=== PATIENT | female | born 1980 | race Caucasian/White ===

== ENCOUNTER 2016-08-24 16:20 | Emergency (ER) | payer MEDICAID ==
--- NOTE | 2016-08-24 16:39 | ED PDOC ---
Arrival/HPI - General Historian: Other EM Caveat: Intoxicated - General Time Seen by Provider: 08/24/16 16:28 - History of Present Illness Narrative History of Present Illness (Text): 08/24/16 16:35 Patient presents with slurring of speech and alcohol on breath. Admits to drinking throughout the day. Pt denies suicidal or homicidal ideations. Denies any trauma or injury. (Feliciano Moffett) Past Medical History - Provider Review Nursing Documentation Reviewed: Yes Family/Social History - Physician Review Nursing Documentation Reviewed: Yes Family/Social History: Unknown Family HX Allergies/Home Meds Allergies/Adverse Reactions: Allergies Unobtainable Allergy (Unverified 08/24/16 16:40) Home Medications: Home Meds Medication Instructions Recorded Confirmed Unobtainable 08/24/16 08/24/16 Review of Systems - Review of Systems Systems not reviewed;Unavailable: Intoxicated Physical Exam Vital Signs Reviewed: Yes Temperature: Afebrile Blood Pressure: Normal Pulse: Regular Respiratory Rate: Normal Appearance: Positive for: Well-Appearing Pain Distress: None - Physical Exam Narrative Physical Exam (Text): Patient is in no distress, no airway compromise, breathing without difficulty, good insp/exp effort. No signs of head/torso/extremity trauma. Following commands without difficulty. Head: Present: Atraumatic, Normocephalic. No: Tenderness, Contusion, Swelling, Ecchymosis, Abrasion, Laceration Pupils: Present: PERRL Extroacular Muscles: Present: EOMI Conjunctiva: Present: Normal Mouth: Present: Moist Mucous Membranes Neck: Present: Normal Range of Motion. No: MIDLINE TENDERNESS, Paraspinal Tenderness Respiratory/Chest: Present: Clear to Auscultation, Good Air Exchange. No: Respiratory Distress, Accessory Muscle Use Cardiovascular: Present: Regular Rate and Rhythm, Normal S1, S2. No: Murmurs Abdomen: Present: Normal Bowel Sounds. No: Tenderness, Distention, Peritoneal Signs, Rebound, Guarding Back: Present: Normal Inspection. No: Midline Tenderness, Paraspinal Tenderness Upper Extremity: Present: Normal Inspection. No: Cyanosis, Edema Lower Extremity: Present: Normal Inspection. No: Edema Neurological: Present: GCS=15, CN II-XII Intact Skin: Present: Warm, Dry, Normal Color. No: Rashes Lymphatic: Present: OX3, NI, NC Psychiatric: Present: Alert. Absent: Agitated, suicidal/homicidal ideations (Feliciano Moffett) Vital Signs Temp Pulse Resp BP Pulse Ox 08/25/16 11:03 97.3 F L 77 18 126/70 99 08/25/16 09:49 80 16 120/66 98 08/25/16 07:30 76 16 169/62 H 98 08/25/16 04:26 96 H 16 110/74 100 08/24/16 18:40 100 H 16 104/59 L 100 08/24/16 16:21 98.4 F 100 H 14 129/82 95 Medical Decision Making ED Course and Treatment: 08/24/16 16:35 Impression: A 36 year old intoxicated female. No acute findings on physical examination. Differential Diagnosis include but are not limited to: alcohol abuse Plan: -- sobriety -- Reassess and disposition (Feliciano Moffett) - Lab Interpretations Lab Results: 08/24/16 19:00 08/24/16 19:00 Lab Results 08/24/16 21:05: Urine Opiates Screen Negative, Urine Methadone Screen Negative, Ur Barbiturates Screen Negative, Ur Phencyclidine Scrn Negative, Ur Amphetamines Screen Negative, U Benzodiazepines Scrn Negative, U Oth Cocaine Metabols Negative, U Cannabinoids Screen Negative 08/24/16 21:05: Urine Color Yellow, Urine Appearance Clear, Urine pH 6.0, Ur Specific [place] 1.010, Urine Protein Negative, Urine Glucose (UA) Negative, Urine Ketones Negative, Urine Blood Negative, Urine Nitrate Negative, Urine Bilirubin Negative, Urine Urobilinogen 0.2, Ur Leukocyte Esterase Negative 08/24/16 19:00: Alcohol, Quantitative 456 H* 08/24/16 19:00: Salicylates < 1 L, Acetaminophen < 10.0 L 08/24/16 19:00: Sodium 146, Potassium 4.2, Chloride 109 H, Carbon Dioxide 26, Anion Gap 15, BUN 11, Creatinine 0.9, Est GFR ( Amer) > 60, Est GFR (Non- Af Amer) > 60, Random Glucose 84, Calcium 8.3 L, Total Bilirubin 0.4, AST 41 H, ALT 34, Alkaline Phosphatase 55, Total Protein 7.3, Albumin 4.2, Globulin 3.0, Albumin/Globulin Ratio 1.4 08/24/16 19:00: WBC 5.5, RBC 3.99, Hgb 13.7, Hct 38.7, MCV 97.0, MCH 34.3, MCHC 35.4, RDW 14.1, Plt Count 205, MPV 10.3, Gran % 45.9 L, Lymph % (Auto) 48.2 H, [place] % (Auto) 4.5, Eos % (Auto) 0.9 L, Baso % (Auto) 0.5, Gran # 2.52, Lymph # 2.7, [place] # 0.3, Eos # 0.1, Baso # 0.03 ED OBSERVATION Date of observation admission: 08/24/16 Time of observation admission: 16:35 - Observation admission statement Patient is being placed in observation because:: alcohol intoxication (Feliciano Moffett) - Goals of Observation Goals of observation are:: sobriety (Feliciano Moffett) - Progress Note Progress Note: 08/24/16 23:47 Patient signed out to me by Dr. Moffett. Pending sobriety and PES evaluation ( Jono Puckett) 08/25/16 07:00 Patient signed out to me by Dr. Puckett pending PES evaluation. 08/25/16 10:42 Patient seen and evaluated by PES. Cleared for discharge. Denies suicidal ideation to me currently. She is not tremulous. She is not tachycardic or hypertensive. Patient is tolerating oral intake. She is alert and oriented. Normal speech and steady gait. Advised on the risks of alcohol abuse. (Suyapa Pollock) 08/24/16 17:23 On reevaluation, the patient is resting comfortably. 08/24/16 18:37 pt friend in the ER, states he is concerned since she expressed suicidal thoughts over the past week, asked to have her seen by PES pt pending sobriety 08/24/16 23:[address] Puckett in stable condition (Feliciano Moffett) - Scribe Statement The provider has reviewed the documentation as recorded by the Scribe - Scribe Statement Martha Agrawal Provider Scribe Attestation: All medical record entries made by the Scribe were at my direction and personally dictated by me. I have reviewed the chart and agree that the record accurately reflects my personal performance of the history, physical exam, medical decision making, and the department course for this patient. I have also personally directed, reviewed, and agree with the discharge instructions and disposition. (Feliciano Moffett) Disposition/Present on Arrival - Present on Arrival Any Indicators Present on Arrival: No - Disposition Have Diagnosis and Disposition been Completed?: Yes Disposition Time: 16:35 Patient Plan: Discharge - Disposition Diagnosis: Alcohol intoxication Disposition: HOME/ ROUTINE Condition: GOOD Discharge Instructions (ExitCare): Alcohol Intoxication (ED) Additional Instructions: For any tremors, any shaking, any fevers, any abdominal pain, any bloody urine or stool, any unsteadiness, any headaches, any persistent or worsening of any symptoms, get rechecked immediately. Risks of excessive alcohol use have been reviewed with you. DO NOT DRINK AND DRIVE. Follow-up with outpatient treatment centers as recommended. Referrals: Alcoholics Anonymous [Outside] - Follow up with primary [facility] at [facility] [Outside] - Follow up with primary Devan Gallardo MD [Primary Care Provider] - Follow up with primary
[2016-08-24 16:40] VITALS: BMI 18.6
[2016-08-24 19:19] LABS: BASO # 0.03 K/mm3 (0.0-2.0); BASO % 0.5 % (0.0-3.0); EOS # 0.1 (0.0-0.7); EOS % 0.9 % (1.5-5.0); GRAN # 2.52 (1.4-6.5); GRAN % 45.9 % (50.0-68.0); HEMOGLOBIN 13.7 gm/dL (12.0-16.0); LYMPH # 2.7 (1.2-3.4); LYMPH % 48.2 % (22.0-35.0); MEAN CORPUSCULAR HEMOGLOBIN 34.3 pg (25.0-35.0); MEAN CORPUSCULAR HGB CONC 35.4 g/dl (31.0-37.0); MEAN PLATELET VOLUME 10.3 fl (7.0-11.0); MONO # 0.3 (0.1-0.6); MONO % 4.5 % (1.0-6.0); PLATELET COUNT 205 10^3/uL (120.0-450.0); RBC 3.99 10^6/uL (3.5-6.1); RED CELL DISTRIBUTION WIDTH 14.1 % (11.5-14.5); WHITE BLOOD COUNT 5.5 10^3/ul (4.5-11.0)
[2016-08-24 19:51] LABS: ALB/GLOB RATIO 1.4 (1.1-1.8); ALBUMIN 4.2 g/dL (3.0-4.8); ALT/SGPT 34 U/L (7-56); AST/SGOT 41 U/L (15-39); BLOOD UREA NITROGEN 11 mg/dL (7-21); CALCIUM 8.3 mg/dL (8.4-10.5); GFR AFRICAN-AMERICAN > 60; GFR NON-AFRICAN AMERICAN > 60
[2016-08-24 20:03] LABS: ACETAMINOPHEN < 10.0 ug/ml (10.0-20.0); SALICYLATE < 1 mg/dL (2.0-20.0)
[2016-08-24 21:22] LABS: URINE BILIRUBIN NEGATIVE (NEGATIVE); URINE BLOOD NEGATIVE (NEGATIVE); URINE GLUCOSE (UA) NEGATIVE (NEGATIVE); URINE LEUKOCYTE ESTERASE NEGATIVE Leu/uL (NEGATIVE); URINE NITRATE NEGATIVE (NEGATIVE); URINE PROTEIN NEGATIVE mg/dL (<30 mg/dL); URINE UROBILINOGEN 0.2 E.U./dL (<1 E.U./dL)
[2016-08-24 21:25] LABS: URINE APPEARANCE CLEAR (CLEAR); URINE COLOR YELLOW (YELLOW)
[2016-08-24 21:29] LABS: BARBITURATES, UR NEGATIVE (NEGATIVE); BENZODIAZEPINES, UR NEGATIVE (NEGATIVE); OPIATES, UR NEGATIVE (NEGATIVE); PHENCYCLIDINE, UR NEGATIVE (NEGATIVE)
[2016-08-25 11:03] VITALS: BP 126/70; PULSE 77; RESP 18; TEMP 97.3; O2SAT 99
== END 2016-08-25 11:04 | disposition home or self-care (01) ==
LOC: ED 16:20
DX: F10.129 Alcohol abuse with intoxication, unspecified (principal); Y90.8 Blood alcohol level of 240 mg/100 ml or more

== ENCOUNTER 2016-10-11 21:01 | Observation (INO) | payer MEDICAID ==
[2016-10-11 21:01] VITALS: BMI 18.6
[2016-10-11 21:10] VITALS: TEMP 98.4
--- NOTE | 2016-10-11 21:36 | ED PDOC ---
Arrival/HPI <Ariel De Paz - Last Filed: 10/12/16 06:23> - General Historian: Patient - History of Present Illness Time/Duration: Prior to Arrival <Mary Martínez - Last Filed: 10/12/16 16:37> - General Chief Complaint: Alcohol Ingestion Time Seen by Provider: 10/11/16 21:28 - History of Present Illness Narrative History of Present Illness (Text): 10/11/16 21:33 36-year-old female presents today brought in by ambulance after having a verbal altercation with a friend. Per EMS patient was drinking today and when the friend tried to bring her home there was a verbal altercation and police were notified. Patient admits to drinking alcohol today. Denies any complaints. ( Mary Martínez) Past Medical History - Provider Review Nursing Documentation Reviewed: Yes - Travel History Have you recently traveled outside [place] w/in the past 3 mons?: No - Infectious Disease Hx of Infectious Diseases: None - Tetanus Immunization Tetanus Immunization: Unknown - Cardiac Hx Cardiac Disorders: No Hx Hypertension: No - Pulmonary Hx Tuberculosis: No - Neurological HX Cerebrovascular Accident: No Hx Seizures: No - Hematological/Oncological Hx Cancer: No - Genitourinary/Gynecological Hx Sexually Transmitted Diseases: No - Psychiatric Hx Substance Use: No <Mary Martínez - Last Filed: 10/12/16 16:37> Family/Social History - Physician Review Nursing Documentation Reviewed: Yes Family/Social History: Unknown Family HX Smoking Status: Unknown If Ever Smoked Hx Alcohol Use: Yes Hx Substance Use: No <Mary Martínez - Last Filed: 10/12/16 16:37> Allergies/Home Meds <Ariel De Paz - Last Filed: 10/12/16 06:23> <Mary Martínez - Last Filed: 10/12/16 16:37> Allergies/Adverse Reactions: Allergies Sulfa (Sulfonamide Antibiotics) Allergy (Verified 10/11/16 21:10) RASH Home Medications: Home Meds Medication Instructions Recorded Confirmed Unobtainable 08/24/16 10/11/16 Review of Systems - Review of Systems Systems not reviewed;Unavailable: Intoxicated Respiratory: absent: SOB Cardiovascular: absent: Chest Pain Gastrointestinal: absent: Abdominal Pain Musculoskeletal: absent: Arthralgias Psychiatric: absent: Suicidal Ideation <Mary Martínez - Last Filed: 10/12/16 16:37> Physical Exam Vital Signs Reviewed: Yes Temperature: Afebrile Blood Pressure: Normal Pulse: Regular Respiratory Rate: Normal Appearance: Positive for: Well-Appearing, Non-Toxic, Comfortable Pain Distress: None Mental Status: Positive for: Alert and Oriented X 3 - Systems Exam Head: Present: Atraumatic Mouth: Present: Moist Mucous Membranes Neck: Present: Normal Range of Motion Respiratory/Chest: Present: Clear to Auscultation Cardiovascular: Present: Tachycardic Abdomen: No: Tenderness Skin: Present: Warm, Dry Psychiatric: Present: Alert, Intoxicated <Mary Martínez - Last Filed: 10/12/16 16:37> Vital Signs Temp Pulse Resp BP Pulse Ox 10/12/16 05:00 77 18 92/56 L 96 10/12/16 03:00 86 16 125/62 96 10/12/16 01:00 86 18 133/59 L 96 10/11/16 23:01 85 18 95/50 L 95 10/11/16 21:10 98.4 F 110 H 20 120/72 94 L Medical Decision Making <Ariel De Paz - Last Filed: 10/12/16 06:23> <Mary Martínez - Last Filed: 10/12/16 16:37> ED Course and Treatment: 10/11/16 21:35 36-year-old female presents today with acute alcohol intoxication. Patient is alert but intoxicated. She admits to drinking alcohol today Fingerstick 74. Will observe for sobriety. 10/12/16 01:08 case signed out to dr. de paz pending sobriety. (Mary Martínez) - Lab Interpretations Lab Results: Lab Results 10/11/16 21:33: POC Glucose (mg/dL) 74 ED OBSERVATION Discharge: Yes <Ariel De Paz - Last Filed: 10/12/16 06:23> Date of observation admission: 10/11/16 Time of observation admission: 21:40 <Mary Martínez - Last Filed: 10/12/16 16:37> - Observation admission statement Patient is being placed in observation because:: alcohol intoxication (Mary Martínez) - Goals of Observation Goals of observation are:: sobriety (Mary Martínez) - Progress Note Progress Note: 10/12/16 01:30 Case endorsed to me by DENIA Martínez, pending sobriety. 10/12/16 03:30 Pt sleeping currently, in no acute distress. 10/12/16 05:30 Pt resting comfortably, no new complaints. 10/12/16 06:24 Pt.is awake alert,sober. (Ariel De Paz) 10/11/16 23:30 pt sleeping in er; no distress. 10/12/16 01:07 pt awake, alert. denies any complaints. BP; 133/49 (Mary Martínez) - PA / FILBERT GROWER / Resident Statement MD/DO has reviewed & agrees with the documentation as recorded. <Ariel De Paz - Last Filed: 10/12/16 06:23> Disposition/Present on Arrival - Present on Arrival Any Indicators Present on Arrival: No - Disposition Have Diagnosis and Disposition been Completed?: Yes Disposition Time: 06:23 Patient Plan: Discharge <Ariel De Paz - Last Filed: 10/12/16 06:23> - Present on Arrival Any Indicators Present on Arrival: No History of DVT/PE: No History of Uncontrolled Diabetes: No Urinary Catheter: No History of Decub. Ulcer: No History Surgical Site Infection Following: None - Disposition Have Diagnosis and Disposition been Completed?: Yes <Mary Martínez - Last Filed: 10/12/16 16:37> - Disposition Diagnosis: Alcohol intoxication Disposition: HOME/ ROUTINE Condition: STABLE
[2016-10-12 01:14] VITALS: O2SAT 96
[2016-10-12 06:23] VITALS: BP 92/56; PULSE 77; RESP 18
== END 2016-10-12 06:22 | disposition home or self-care (01) ==
LOC: ED 21:01 → EROBSV 21:36
PROVIDERS: ADMIT Emergency Medicine; ATTEND Emergency Medicine
DX: F10.129 Alcohol abuse with intoxication, unspecified (principal)
CPT/HCPCS: 82948; 99285; G0378

== ENCOUNTER 2018-03-06 17:37 | Inpatient (IN) | payer MEDICAID ==
[2018-03-06] MEDS ORDERED: Sodium Chloride 0.9% 1,000 ML IV STA (18:07)
--- NOTE | 2018-03-06 18:09 | ED PDOC ---
Arrival/HPI - General Chief Complaint: Seizure Time Seen by Provider: 03/06/18 17:49 Historian: Patient - History of Present Illness Narrative History of Present Illness (Text): 03/06/18 18:04 37 year old female, whose past medical history includes HIV and miscarriage (02/02/2018), who presents to the ED s/p seizure. Patient was asleep when she experienced the seizure. Patient's fiance states seizure lasted 29 seconds. Patient was stiff during seizure. Patient's fiance states patient was incoherent for 30 minutes. Patient states she has a headache. Patient denies any fever, chills, chest pain, back pain, neck pain, abdominal pain, n/v/d, or any other complaints. Time/Duration: 1-3 hours Symptom Onset: Gradual Symptom Course: Unchanged Activities at Onset: Light Context: Home Past Medical History - Provider Review Nursing Documentation Reviewed: Yes - Infectious Disease Hx of Infectious Diseases: None - Tetanus Immunization Tetanus Immunization: Unknown - Reproductive Menopause: No - Cardiac Hx Cardiac Disorders: No Hx Hypertension: No - Pulmonary Hx Tuberculosis: No - Neurological HX Cerebrovascular Accident: No Hx Seizures: No - Hematological/Oncological Hx Cancer: No - Genitourinary/Gynecological Hx Sexually Transmitted Diseases: No - Psychiatric Hx Bipolar Disorder: Yes Hx Depression: No Hx Schizophrenia: Yes Hx Substance Use: No (DENIES) - Anesthesia Hx Anesthesia: No - Suicidal Assessment Feels Threatened In Home Enviroment: No Family/Social History - Physician Review Nursing Documentation Reviewed: Yes Family/Social History: Unknown Family HX Smoking Status: Unknown If Ever Smoked Hx Alcohol Use: Yes (OCCASIONALLY) Hx Substance Use: No (DENIES) Allergies/Home Meds Allergies/Adverse Reactions: Allergies shellfish derived Allergy (Verified 12/06/17 11:39) RASH Sulfa (Sulfonamide Antibiotics) Allergy (Verified 12/06/17 11:39) RASH Home Medications: Home Meds Medication Instructions Recorded Confirmed Elviteg/Julieta/Emtric/Tenofo Dis 1 tab PO DAILY 03/06/18 03/06/18 [Stribild] Review of Systems - Physician Review All systems were reviewed & negative as marked: Yes - Review of Systems Constitutional: Normal Eyes: Normal ENT: Normal Respiratory: Normal. absent: SOB, Cough Cardiovascular: Normal. absent: Chest Pain Gastrointestinal: Normal. absent: Abdominal Pain, Diarrhea, Nausea, Vomiting Genitourinary Female: Normal. absent: Frequency, Hematuria Musculoskeletal: Normal. absent: Back Pain, Neck Pain Skin: Normal. absent: Rash Neurological: Seizure. absent: Headache, Dizziness Endocrine: Normal Hemo/Lymphatic: Normal Psychiatric: Normal Physical Exam - Physical Exam Narrative Physical Exam (Text): 03/06/18 18:09 Constitutional: No acute distress. Head: Normocephalic. Atraumatic. Eyes: PERRL. ENT: Moist mucous membranes. Neck: Supple. Cardiovascular: Tachycardiac. Chest: No tenderness. Respiratory: Clear to auscultation bilaterally. GI: Soft. Nontender. Nondistended. Back: No CVA tenderness. Musculoskeletal: No tenderness or swelling of extremities. Skin: No rash. Neurologic: Alert, no focal deficit. Vital Signs Temp Pulse Resp BP Pulse Ox 03/06/18 17:44 99.0 F 113 H 18 138/88 99 Medical Decision Making ED Course and Treatment: 03/06/18 18:10 Impression: 37 year old female presents to the ED s/p seizure at home. Plan: -- CT Head -- EKG -- Labs -- Beta-HCG, quantitative -- CXR -- Sodium Chloride -- Urine Culture -- UA -- reassess and disposition Progress Note: 03/06/18 18:24 EKG reviewed, shows sinus rhythm at [address]/T wave changes. Pending CT. Signed out to ED night team. - Scribe Statement The provider has reviewed the documentation as recorded by the Scribe Nidia Delgado All medical record entries made by the Scribe were at my direction and personally dictated by me. I have reviewed the chart and agree that the record accurately reflects my personal performance of the history, physical exam, medical decision making, and the department course for this patient. I have also personally directed, reviewed, and agree with the discharge instructions and disposition. Disposition/Present on Arrival - Present on Arrival Any Indicators Present on Arrival: No History of DVT/PE: No History of Uncontrolled Diabetes: No Urinary Catheter: No History of Decub. Ulcer: No History Surgical Site Infection Following: None - Disposition Have Diagnosis and Disposition been Completed?: No Diagnosis: Seizure Disposition: HOSPITALIZED Disposition Time: 19:00 Condition: FAIR
[2018-03-06 18:32] LABS: BASO # 0.03 K/mm3 (0.0-2.0); BASO % 0.5 % (0.0-3.0); EOS # 0.2 (0.0-0.7); EOS % 3.7 % (1.5-5.0); GRAN # 4.74 (1.4-6.5); GRAN % 76.3 % (50.0-68.0); HEMOGLOBIN 11.5 g/dL (12.0-16.0); LYMPH # 0.7 (1.2-3.4); LYMPH % 11.6 % (22.0-35.0); MEAN CELL VOLUME 92.7 fl (80.0-105.0); MEAN CORPUSCULAR HEMOGLOBIN 31.1 pg (25.0-35.0); MEAN CORPUSCULAR HGB CONC 33.5 g/dl (31.0-37.0); MEAN PLATELET VOLUME 10.9 fl (7.0-11.0); MONO # 0.5 (0.1-0.6); MONO % 7.9 % (1.0-6.0); RBC 3.7 10^6/uL (3.5-6.1); RED CELL DISTRIBUTION WIDTH 16.9 % (11.5-14.5); WHITE BLOOD COUNT 6.2 10^3/uL (4.5-11.0)
[2018-03-06 18:37] LABS: ALB/GLOB RATIO 1.2 (1.1-1.8); ALBUMIN 4.1 g/dL (3.0-4.8); ALT/SGPT 60 U/L (7-56); AST/SGOT 99 U/L (14-36); BLOOD UREA NITROGEN 11 mg/dL (7-21); CALCIUM 9.1 mg/dL (8.4-10.5); GFR NON-AFRICAN AMERICAN > 60
--- NOTE | 2018-03-06 19:55 | ED PDOC ---
Physical Exam Vital Signs Temp Pulse Resp BP Pulse Ox 03/06/18 17:44 99.0 F 113 H 18 138/88 99 Medical Decision Making ED Course and Treatment: 03/06/18 19:[address] Garcia with patient pending CTH and neuro consult. 03/06/18 20:37 CT head negative for any intracranial abnormalities. Call placed to Dr. Alfonso(neurology). 03/06/18 20:[address] Alfonso who advises for patient to stay in the hospital, but if not to discharge patient on Keppra 500mg BID and for follow up in 1-2 week with her outpatient. Patient reevaluated and does not have significant improvement in symptoms. Decision made to admit the patient. Call placed to Dr. Lares(house staff). 03/06/18 21:[address] Merino, and spoke to resident. Patient will be admitted under hospitalist service. - Lab Interpretations Lab Results: 03/06/18 18:18 03/06/18 18:18 Lab Results 03/06/18 18:18: Beta HCG, Quant 11.89 H, Alcohol, Quantitative < 10 03/06/18 18:18: Sodium 131 L, Potassium 3.4 L, Chloride 92 L, Carbon Dioxide 32, Anion Gap 10, BUN 11, Creatinine 0.7, Est GFR ( Amer) > 60, Est GFR (Non- Af Amer) > 60, Random Glucose 130 H, Calcium 9.1, Phosphorus 1.9 L, Magnesium 1.3 L, Total Bilirubin 1.1, AST 99 H, ALT 60 H, Alkaline Phosphatase 73, Total Protein 7.3, Albumin 4.1, Globulin 3.2, Albumin/Globulin Ratio 1.2 03/06/18 18:18: WBC 6.2, RBC 3.70, Hgb 11.5 L, Hct 34.3 L, MCV 92.7, MCH 31.1, MCHC 33.5, RDW 16.9 H, Plt Count 133, MPV 10.9, Gran % 76.3 H, Lymph % (Auto) 11.6 L, [place] % (Auto) 7.9 H, Eos % (Auto) 3.7, Baso % (Auto) 0.5, Gran # 4.74, Lymph # (Auto) 0.7 L, [place] # (Auto) 0.5, Eos # (Auto) 0.2, Baso # (Auto) 0.03 I have reviewed the lab results: Yes - RAD Interpretation Narrative RAD Interpretations (Text): 03/06/18 20:36 CT Head reviewed, shows: IMPRESSION: No acute intracranial abnormality Radiology Orders: 03/06/18 18:06 CHEST ONE VIEW [RAD] Stat 03/06/18 18:08 HEAD W/O CONTRAST [CT] Stat - Medication Orders Current Medication Orders: Discontinued Medications Sodium Chloride (Sodium Chloride 0.9%) 1,000 mls @ 999 mls/hr IV .Q1H1M STA Stop: 03/06/18 19:07 Last Admin: 03/06/18 18:26 Dose: 999 mls/hr eMAR Start Stop Document 03/06/18 18:26 EB (Rec: 03/06/18 18:27 EB [facility] [id number]) Intravenous Solution Start Date 03/06/18 Start Time 18:25 End Date 03/06/18 End time 19:25 Total Infusion Time 60 Disposition/Present on Arrival - Present on Arrival Any Indicators Present on Arrival: No History of DVT/PE: No History of Uncontrolled Diabetes: No Urinary Catheter: No History of Decub. Ulcer: No History Surgical Site Infection Following: None - Disposition Have Diagnosis and Disposition been Completed?: Yes Diagnosis: Seizure Disposition: HOSPITALIZED Disposition Time: 20:00 Patient Plan: Admission Condition: FAIR
[2018-03-06 19:57] LABS: URINE BILIRUBIN NEGATIVE (NEGATIVE); URINE BLOOD MODERATE (NEGATIVE); URINE GLUCOSE (UA) NEGATIVE (NEGATIVE); URINE LEUKOCYTE ESTERASE MODERATE Leu/uL (NEGATIVE); URINE PROTEIN NEGATIVE mg/dL (<30 mg/dL); URINE UROBILINOGEN 0.2 E.U./dL (<1 E.U./dL)
[2018-03-06 19:58] LABS: URINE APPEARANCE CLEAR (CLEAR); URINE COLOR YELLOW (YELLOW)
[2018-03-06 20:08] LABS: URINE EPITHELIAL CELLS 0 - 2 /hpf (0-5); URINE RBC 0 - 2 /hpf (0-2)
[2018-03-06 20:27] LABS: BARBITURATES, UR NEGATIVE (NEGATIVE); BENZODIAZEPINES, UR NEGATIVE (NEGATIVE); OPIATES, UR NEGATIVE (NEGATIVE); PHENCYCLIDINE, UR NEGATIVE (NEGATIVE)
[2018-03-06] MEDS ORDERED: levETIRAcetam 1000mg/100ml NS 100 ML IV ONE (21:14)
[2018-03-06] MEDS ORDERED: Potassium Chloride 20 mEq ER Tab PO STA (22:20)
[2018-03-06] MEDS ORDERED: Magnesium Sulfate 2 gm/50 ml 2 GM/50 ML BAG IVPB ONE (22:20)
--- NOTE | 2018-03-06 22:44 | CP.PCM.HP ---
<Stevo Agrawal - Last Filed: 03/07/18 03:16> History of Present Illness - History of Present Illness History of Present Illness: Stevo Agrawal DO PGY1 - Internal Medicine Overnight Houseperson - Medicine H&P CC: New onset Seizure 37F w/ a PMh of HIV, and recent miscarriage (01/2018) presented to [facility] on 03/06 w/ c/o new onset seizure. Patient reports hours prior to arrival she was taking a nap with her SO when he noticed that patient began stiffening and experiencing limb jerking movements. SO reported that he rolled patient on side, as patient was foaming at mouth, and witnessed episode lasting for 29 seconds. He reported post seizure patient became lethargic and confused for approximately 15 minutes. Patient denies urinary incontinence however does report she bit her tongue. At time of evaluation she reported feeling exhuasted w/ headache and complains of double vision (which she reports as transient). She denies any new medications or changes to previous medications, she denies any use of alcohol, illicit drugs, or removal prescribed medications. She also denies any recent illnesses. Patient reports her last hospitalization was in January for miscarriage, and December for pyelonephritis. Denies Urinary discomfory, abd pain, n/v/d/c, focal weakness, numbness/tingling, cp, sob, remainder 12 system ROS is otherwise negative PMD: Devan Ng PMH: HIV, Miscarriage PSH: Denies Home Rx: Stribild (Elvitegravir, Cobicistat, Emtricabine, tenofovir disoproxil fumarate) Allergies: Sulfa, Shellfish Allergy Fam Hx: CAD, DM, Asthma, Lupus - Mother; Father - unknown Present on Admission - Present on Admission Any Indicators Present on Admission: No Review of Systems - Review of Systems All systems: reviewed and no additional remarkable complaints except Review of Systems: as per HPI Past Patient History - Infectious Disease Hx of Infectious Diseases: None - Tetanus Immunizations Tetanus Immunization: Unknown - Past Social History Smoking Status: Unknown If Ever Smoked - CARDIAC Hx Cardiac Disorders: No Hx Hypertension: No - PULMONARY Hx Tuberculosis: No - NEUROLOGICAL HX Cerebrovascular Accident: No Hx Seizures: No - HEMATOLOGICAL/ONCOLOGICAL Hx Cancer: No - GENITOURINARY/GYNECOLOGICAL Hx Sexually Transmitted Disorders: No - PSYCHIATRIC Hx Bipolar Disorder: Yes Hx Depression: No Hx Schizophrenia: Yes Hx Substance Use: No (DENIES) - SURGICAL HISTORY Hx Surgeries: No - ANESTHESIA Hx Anesthesia: No Meds Allergies/Adverse Reactions: Allergies Allergy/AdvReac Type Severity Reaction Status Date / Time shellfish derived Allergy RASH Verified 12/06/17 11:39 Sulfa (Sulfonamide Allergy RASH Verified 12/06/17 11:39 Antibiotics) Physical Exam - Constitutional Appears: Well, Non-toxic, No Acute Distress - Eye Exam Eye Exam: EOMI, Normal appearance, PERRL - ENT Exam ENT Exam: Mucous Membranes Moist - Respiratory Exam Respiratory Exam: Clear to Auscultation Bilateral, NORMAL BREATHING PATTERN. absent: Rales, Rhonchi, Wheezes - Cardiovascular Exam Cardiovascular Exam: RRR, +S1, +S2 - GI/Abdominal Exam GI & Abdominal Exam: Normal Bowel Sounds, Soft. absent: Tenderness - Extremities Exam Extremities exam: Positive for: normal inspection, pedal pulses present - Neurological Exam Neurological exam: Alert, CN II-XII Intact, Oriented x3 Additional comments: Gross UE/ LE strength 5/5 w/o any relative deficit bilaterally UE / LE sensory lindsey intact bilaterally - Psychiatric Exam Psychiatric exam: Normal Affect, Normal Mood - Skin Skin Exam: Dry, Intact, Normal Color, Warm Results - Vital Signs Recent Vital Signs: Last Vital Signs Temp 99.0 F 03/06/18 17:44 Pulse 113 H 03/06/18 17:44 Resp 18 03/06/18 17:44 BP 138/88 03/06/18 17:44 Pulse Ox 99 03/06/18 17:44 - Labs Result Diagrams: 03/06/18 18:18 03/06/18 18:18 Labs: Laboratory Results - last 24 hr 03/06/18 03/06/18 03/06/18 18:18 18:18 18:18 WBC 6.2 RBC 3.70 Hgb 11.5 L Hct 34.3 L MCV 92.7 MCH 31.1 MCHC 33.5 RDW 16.9 H Plt Count 133 MPV 10.9 Gran % 76.3 H Lymph % (Auto) 11.6 L [place] % (Auto) 7.9 H Eos % (Auto) 3.7 Baso % (Auto) 0.5 Gran # 4.74 Lymph # (Auto) 0.7 L [place] # (Auto) 0.5 Eos # (Auto) 0.2 Baso # (Auto) 0.03 Sodium 131 L Potassium 3.4 L Chloride 92 L Carbon Dioxide 32 Anion Gap 10 BUN 11 Creatinine 0.7 Est GFR ( Amer) > 60 Est GFR (Non-Af Amer) > 60 Random Glucose 130 H Calcium 9.1 Phosphorus 1.9 L Magnesium 1.3 L Total Bilirubin 1.1 AST 99 H ALT 60 H Alkaline Phosphatase 73 Total Protein 7.3 Albumin 4.1 Globulin 3.2 Albumin/Globulin Ratio 1.2 Beta HCG, Quant 11.89 H Urine Color Urine Appearance Urine pH Ur Specific [place] Urine Protein Urine Glucose (UA) Urine Ketones Urine Blood Urine Nitrate Urine Bilirubin Urine Urobilinogen Ur Leukocyte Esterase Urine RBC Urine WBC Ur Epithelial Cells Urine Opiates Screen Urine Methadone Screen Ur Barbiturates Screen Ur Phencyclidine Scrn Ur Amphetamines Screen U Benzodiazepines Scrn U Oth Cocaine Metabols U Cannabinoids Screen Alcohol, Quantitative < 10 03/06/18 03/06/18 19:50 19:50 WBC RBC Hgb Hct MCV MCH MCHC RDW Plt Count MPV Gran % Lymph % (Auto) [place] % (Auto) Eos % (Auto) Baso % (Auto) Gran # Lymph # (Auto) [place] # (Auto) Eos # (Auto) Baso # (Auto) Sodium Potassium Chloride Carbon Dioxide Anion Gap BUN Creatinine Est GFR ( Amer) Est GFR (Non-Af Amer) Random Glucose Calcium Phosphorus Magnesium Total Bilirubin AST ALT Alkaline Phosphatase Total Protein Albumin Globulin Albumin/Globulin Ratio Beta HCG, Quant Urine Color Yellow Urine Appearance Clear Urine pH 8.0 Ur Specific [place] 1.010 Urine Protein Negative Urine Glucose (UA) Negative Urine Ketones Negative Urine Blood Moderate H Urine Nitrate Negative Urine Bilirubin Negative Urine Urobilinogen 0.2 Ur Leukocyte Esterase Moderate H Urine RBC 0 - 2 Urine WBC 1 - 3 Ur Epithelial Cells 0 - 2 Urine Opiates Screen Negative Urine Methadone Screen Negative Ur Barbiturates Screen Negative Ur Phencyclidine Scrn Negative Ur Amphetamines Screen Negative U Benzodiazepines Scrn Negative U Oth Cocaine Metabols Negative U Cannabinoids Screen Negative Alcohol, Quantitative Assessment & Plan - Assessment and Plan (Free Text) Assessment: 37F w/ a PMh of HIV, and recent miscarriage (01/2018) presented to [facility] ED on 03/06 w/ c/o new onset seizure. Patient admitted for management and workup of new onset seizure. Plan: Seizure etiology unknown; possibly due to electrolyte derangement 03/07 - CT Head Con - negative on prelim read No recent changes in medication, Utox negative, No acute illness reported - Electrolyte disturbances noted Loaded 1gm Keppra in ED C/w keppra 500 Q12 MRI Brain pending Neurology consulted, appreciate reccs Electrolyte Imbalance: Decreased Na, K, Mag, Phos, Ca, Given 1L bolus in ED 40meq K+ PO Start 1pkt Neutra-phos TID Started 2gm Mag Sulfate IVPB Reassess in AM Hx HIV Stribold non formulary here Will encourage patient to bring rx from home CD4 count pending Hx Pyelonephritis Given past hx of pyelo, and leuk esterase on UA Will follow up UCx PPX: DVT: SCD GI: None indicated Patient was seen, examined, and discussed w/ attending physician Dr. Wilber Agrawal DO PGY1 - Internal Medicine Overnight Houseperson <Carmen Merino - Last Filed: 03/07/18 06:41> Results - Vital Signs Recent Vital Signs: Last Vital Signs Temp 99.0 F 03/06/18 17:44 Pulse 92 H 03/07/18 02:21 Resp 20 03/07/18 04:01 BP 113/77 03/07/18 02:21 Pulse Ox 100 03/07/18 02:21 - Labs Result Diagrams: 03/06/18 18:18 03/06/18 18:18 Labs: Laboratory Results - last 24 hr 03/06/18 03/06/18 03/06/18 18:18 18:18 18:18 WBC 6.2 RBC 3.70 Hgb 11.5 L Hct 34.3 L MCV 92.7 MCH 31.1 MCHC 33.5 RDW 16.9 H Plt Count 133 MPV 10.9 Gran % 76.3 H Lymph % (Auto) 11.6 L [place] % (Auto) 7.9 H Eos % (Auto) 3.7 Baso % (Auto) 0.5 Gran # 4.74 Lymph # (Auto) 0.7 L [place] # (Auto) 0.5 Eos # (Auto) 0.2 Baso # (Auto) 0.03 Sodium 131 L Potassium 3.4 L Chloride 92 L Carbon Dioxide 32 Anion Gap 10 BUN 11 Creatinine 0.7 Est GFR ( Amer) > 60 Est GFR (Non-Af Amer) > 60 Random Glucose 130 H Calcium 9.1 Phosphorus 1.9 L Magnesium 1.3 L Total Bilirubin 1.1 AST 99 H ALT 60 H Alkaline Phosphatase 73 Total Protein 7.3 Albumin 4.1 Globulin 3.2 Albumin/Globulin Ratio 1.2 Beta HCG, Quant 11.89 H Urine Color Urine Appearance Urine pH Ur Specific [place] Urine Protein Urine Glucose (UA) Urine Ketones Urine Blood Urine Nitrate Urine Bilirubin Urine Urobilinogen Ur Leukocyte Esterase Urine RBC Urine WBC Ur Epithelial Cells Urine Opiates Screen Urine Methadone Screen Ur Barbiturates Screen Ur Phencyclidine Scrn Ur Amphetamines Screen U Benzodiazepines Scrn U Oth Cocaine Metabols U Cannabinoids Screen Alcohol, Quantitative < 10 03/06/18 03/06/18 19:50 19:50 WBC RBC Hgb Hct MCV MCH MCHC RDW Plt Count MPV Gran % Lymph % (Auto) [place] % (Auto) Eos % (Auto) Baso % (Auto) Gran # Lymph # (Auto) [place] # (Auto) Eos # (Auto) Baso # (Auto) Sodium Potassium Chloride Carbon Dioxide Anion Gap BUN Creatinine Est GFR ( Amer) Est GFR (Non-Af Amer) Random Glucose Calcium Phosphorus Magnesium Total Bilirubin AST ALT Alkaline Phosphatase Total Protein Albumin Globulin Albumin/Globulin Ratio Beta HCG, Quant Urine Color Yellow Urine Appearance Clear Urine pH 8.0 Ur Specific [place] 1.010 Urine Protein Negative Urine Glucose (UA) Negative Urine Ketones Negative Urine Blood Moderate H Urine Nitrate Negative Urine Bilirubin Negative Urine Urobilinogen 0.2 Ur Leukocyte Esterase Moderate H Urine RBC 0 - 2 Urine WBC 1 - 3 Ur Epithelial Cells 0 - 2 Urine Opiates Screen Negative Urine Methadone Screen Negative Ur Barbiturates Screen Negative Ur Phencyclidine Scrn Negative Ur Amphetamines Screen Negative U Benzodiazepines Scrn Negative U Oth Cocaine Metabols Negative U Cannabinoids Screen Negative Alcohol, Quantitative Attending/Attestation - Attestation I have personally seen and examined this patient.: Yes I have fully participated in the care of the patient.: Yes I have reviewed all pertinent clinical information: Yes
[2018-03-06] MEDS: Sodium Chloride 0.9% 1,000 ML IV SCH (22:59)
[2018-03-06] MEDS: Potassium & Sodium Phosphate PO SCH (23:20)
[2018-03-07 04:30] VITALS: BMI 18.3
[2018-03-07 07:58] LABS: HEMOGLOBIN 10.4 g/dL (12.0-16.0); MEAN CELL VOLUME 94.1 fl (80.0-105.0); MEAN CORPUSCULAR HEMOGLOBIN 30.9 pg (25.0-35.0); MEAN CORPUSCULAR HGB CONC 32.8 g/dl (31.0-37.0); MEAN PLATELET VOLUME 10.1 fl (7.0-11.0); RBC 3.37 10^6/uL (3.5-6.1); RED CELL DISTRIBUTION WIDTH 17.5 % (11.5-14.5); WHITE BLOOD COUNT 4.5 10^3/uL (4.5-11.0)
[2018-03-07 08:20] LABS: ALB/GLOB RATIO 1.1 (1.1-1.8); ALBUMIN 3.6 g/dL (3.0-4.8); ALT/SGPT 50 U/L (7-56); AST/SGOT 67 U/L (14-36); BLOOD UREA NITROGEN 7 mg/dL (7-21); CALCIUM 8.1 mg/dL (8.4-10.5); GFR NON-AFRICAN AMERICAN > 60
[2018-03-07] MEDS: Sodium Chloride 0.9% 1,000 ML IV SCH (09:28)
[2018-03-07] MEDS: Potassium & Sodium Phosphate PO SCH ×3 (09:29→17:20)
[2018-03-07] MEDS: levETIRAcetam 500mg IVPB 500 MG/100 ML BAG IV SCH ×2 (09:32→21:26)
--- NOTE | 2018-03-07 09:49 | CT ---
Date of service: 03/06/2018 PROCEDURE: CT HEAD WITHOUT CONTRAST. HISTORY: seizure COMPARISON: None available. TECHNIQUE: Axial computed tomography images were obtained through the head/brain without intravenous contrast. Radiation dose: Total exam DLP = 827.92 mGy-cm. This CT exam was performed using one or more of the following dose reduction techniques: Automated exposure control, adjustment of the mA and/or kV according to patient size, and/or use of iterative reconstruction technique. FINDINGS: HEMORRHAGE: No intracranial hemorrhage. BRAIN: No mass effect or edema. No atrophy or chronic microvascular ischemic changes. VENTRICLES: Unremarkable. No hydrocephalus. CALVARIUM: Unremarkable. PARANASAL SINUSES: Unremarkable as visualized. No significant inflammatory changes. MASTOID AIR CELLS: Unremarkable as visualized. No inflammatory changes. OTHER FINDINGS: None. IMPRESSION: Normal CT of the Head.
[2018-03-07 09:52] LABS: FREE T4 0.93 ng/dL (0.78-2.19)
--- NOTE | 2018-03-07 10:12 | RAD ---
Date of service: 03/06/2018 PROCEDURE: CHEST RADIOGRAPH, 1 VIEW HISTORY: seizure COMPARISON: None available. FINDINGS: LUNGS: Clear. PLEURA: No pneumothorax or pleural fluid seen. CARDIOVASCULAR: No aortic atherosclerotic calcification present. Normal. OSSEOUS STRUCTURES: No significant abnormalities. VISUALIZED UPPER ABDOMEN: Normal. OTHER FINDINGS: None. IMPRESSION: No active disease.
[2018-03-07] MEDS: Non Formulary Medication (Elviteg/Cobi/Emtric/Tenofo Dis [Stribild Tablet] 1 TAB) PO SCH (10:21)
--- NOTE | 2018-03-07 10:35 | CARD ---
APPROVED REPORT Date of service: 03/06/2018 EKG Measurement Heart [id number] <Conclusion> Sinus tachycardia Otherwise normal ECG
--- NOTE | 2018-03-07 14:26 | US ---
Date of service: 03/07/2018 PROCEDURE: HISTORY: recent - r/o retained products of conc COMPARISON: TECHNIQUE: FINDINGS: The uterus measures 8.7 x 4.8 x 6.0 centimeters. The endometrium measures 17 millimeters and is diffusely heterogeneous which could indicate hemorrhage or retained products of conception. There is no enhancement internally. There is no free fluid the pelvis. The ovaries have a normal sonographic appearance. IMPRESSION: 17 millimeter thickened heterogeneous endometrium possibly representing hemorrhage or retained products of conception though there is no evidence of internal vascularity on Doppler interrogation.
[2018-03-07] MEDS ORDERED: Gadodiamide 287 MG/ML VIAL (15ML) IV ONE (14:46)
--- NOTE | 2018-03-07 16:01 | MRI ---
Date of service: 03/07/2018 PROCEDURE: MRI BRAIN WITH AND WITHOUT CONTRAST HISTORY: seizure COMPARISON: CT 03/06/2018 TECHNIQUE: Multiplanar, multisequence MR images of the brain were obtained with and without intravenous contrast enhancement. 15 cc of Omniscan FINDINGS: HEMORRHAGE: None DWI: No evidence of an acute or early subacute infarction. BRAIN PARENCHYMA: No mass,mass effect or edema. No atrophy or chronic microvascular ischemic changes. ENHANCEMENT: No abnormal intracranial enhancement. VENTRICLES: Unremarkable. No hydrocephalus. CRANIUM: Unremarkable. ORBITS: Grossly unremarkable. PARANASAL SINUSES/MASTOIDS: Clear VASCULAR SYSTEM: Skull base flow voids intact. OTHER FINDINGS: None . IMPRESSION: Unremarkable pre and post contrast enhanced MRI of the brain.
[2018-03-07 16:36] LABS: HEPATITIS B SURFACE AG Negative (NEGATIVE)
[2018-03-07 16:42] LABS: HEPATITIS A IGM NEGATIVE (NEGATIVE); HEPATITIS B CORE AB NEGATIVE (NEGATIVE)
[2018-03-07 16:53] LABS: HEPATITIS C ANTIBODY NEGATIVE (NEGATIVE)
[2018-03-07] MEDS: guaiFENesin 100 mg/5 ml Syrup UD PO PRN ×2 (17:19→21:26)
[2018-03-07] MEDS ORDERED: POLYETHYLENE GLYCOL 3350 17 GM/Dose PACKET PO ONE (17:27)
[2018-03-07 19:38] LABS: CREATININE,RANDOM URINE 40 mg/dL; TOTAL PROTEIN,RANDOM URINE 79 mg/L
[2018-03-07 19:47] LABS: OSMOLALITY,URINE 316 mosm/kg (300-1000)
--- NOTE | 2018-03-07 23:40 | CP.PCM.CON ---
History of Present Illness - History of Present Illness History of Present Illness: Neurology Consult note for Dr. Sean Dior PGY2 Patient is a 37 F with a medical history significant for HIV, traumatic brain injury, and possible seizures who presents to the emergency department /p seizure. History obtained from patient's partner as patient has no recollection of the event. .As per patient's partner, patient was sleeping around 330 0in the afternoon on Wednesday when she suddenly woke up threw off her sheets and began clenching her jaw while staring at the tv screen. Apparently patient had around 4 similar episodes prior to this which lasted a few seconds however this episode lasted 28 seconds. The patient's partner's' first reaction was to place his finger in her mouth to prevent her from biting her tongue. Patient was then post ictal for abou 25-30 minutes having no recollection of the seizure. EMS was called an hour later and patient was brought to the hospital. There was no urinary incontinence during the seizure however there noted tongue biting. . PMD: Devan Ng PMH: HIV, Miscarriage PSH: Denies Home Rx: Stribild (Elvitegravir, Cobicistat, Emtricabine, tenofovir disoproxil fumarate) Allergies: Sulfa, Shellfish Allergy Fam Hx: CAD, DM, Asthma, Lupus - Mother; Father - unknown Review of Systems - Constitutional Constitutional: Fatigue. absent: Chills, Fever - EENT Eyes: Blurred Vision - Cardiovascular Cardiovascular: absent: Chest Pain, Dyspnea - Respiratory Respiratory: absent: Cough, Wheezing - Gastrointestinal Gastrointestinal: absent: Constipation, Diarrhea, Nausea - Genitourinary Genitourinary: absent: Urinary Incontinence - Reproductive: Female Reproductive:Female: Spotting Between Cycles (s/p miscarriage ) - Musculoskeletal Musculoskeletal: Muscle Weakness Past Patient History - Infectious Disease Hx of Infectious Diseases: None - Tetanus Immunizations Tetanus Immunization: Unknown - Past Social History Smoking Status: Light Smoker < 10 Cigarettes Daily - CARDIAC Hx Cardiac Disorders: No Hx Hypertension: No - PULMONARY Hx Tuberculosis: No - NEUROLOGICAL HX Cerebrovascular Accident: No Hx Seizures: No - HEMATOLOGICAL/ONCOLOGICAL Hx Cancer: No - MUSCULOSKELETAL/RHEUMATOLOGICAL Hx Falls: No - GENITOURINARY/GYNECOLOGICAL Hx Sexually Transmitted Disorders: No - PSYCHIATRIC Hx Bipolar Disorder: Yes Hx Depression: No Hx Schizophrenia: Yes - SURGICAL HISTORY Hx Surgeries: No - ANESTHESIA Hx Anesthesia: No Meds Allergies/Adverse Reactions: Allergies Allergy/AdvReac Type Severity Reaction Status Date / Time shellfish derived Allergy RASH Verified 12/06/17 11:39 Sulfa (Sulfonamide Allergy RASH Verified 12/06/17 11:39 Antibiotics) - Medications Medications: Current Medications Acetaminophen (Tylenol 325mg Tab) 650 mg PO Q4 PRN PRN Reason: Headache Guaifenesin (Robitussin) 100 mg PO Q4H PRN PRN Reason: Cough Last Admin: 03/07/18 21:26 Dose: 100 mg Levetiracetam (Keppra 500mg Ivpb) 500 mg in 100 mls @ 460 mls/hr IV Q12 CAROLEE Last Admin: 03/07/18 21:26 Dose: 460 mls/hr Sodium Chloride (Sodium Chloride 0.9%) 1,000 mls @ 100 mls/hr IV .Q10H [facility] Last Admin: 03/07/18 09:28 Dose: 100 mls/hr Lorazepam (Ativan) 1 mg IVP Q4H PRN; Protocol PRN Reason: Seizure activity Non-Formulary Medication (Elviteg/Julieta/Emtric/Tenofo Dis [Stribild Tablet]) 1 tab PO DAILY [facility] Last Admin: 03/07/18 10:21 Dose: Not Given Potassium Phos/Sodium Phos (Neutra-Phos) 1 pkt PO TID [facility] Stop: 03/08/18 00:00 Last Admin: 03/07/18 17:20 Dose: 1 pkt Physical Exam - Head Exam Head Exam: ATRAUMATIC, NORMAL INSPECTION, NORMOCEPHALIC - Eye Exam Eye Exam: EOMI, Normal appearance - ENT Exam ENT Exam: Mucous Membranes Moist - Neck Exam Neck exam: Positive for: Normal Inspection - Respiratory Exam Respiratory Exam: Clear to Auscultation Bilateral, NORMAL BREATHING PATTERN - Cardiovascular Exam Cardiovascular Exam: REGULAR RHYTHM, +S1, +S2 - GI/Abdominal Exam GI & Abdominal Exam: Normal Bowel Sounds, Soft - Neurological Exam Neurological exam: Alert, CN II-XII Intact, Oriented x3 - Expanded Neurological Exam Expanded Speech: Fluid Speech Cranial nerves: EOM's Intact: Normal, Facial Sensation: Normal, Tongue Deviation: Normal Cerebellar Function: Finger to Nose: Normal, Romberg: Abnormal Left, Abnormal Right Upper motor neuron: Pronator Drift: Abnormal Right, Sensory Extinction: Normal Sensory exam: Lower Extremity 2 Point Discrimination: Normal Neuro motor strength exam: Left Upper Extremity: 4, Right Upper Extremity: 4, Left Lower Extremity: 4, Right Lower Extremity: 4 - Psychiatric Exam Psychiatric exam: Normal Affect, Normal Mood - Skin Skin Exam: Normal Color, Warm Results - Vital Signs Recent Vital Signs: Last Vital Signs Temp 98.7 F 03/07/18 06:00 Pulse 87 03/07/18 06:00 Resp 20 03/07/18 06:00 BP 116/82 03/07/18 06:00 Pulse Ox 99 03/07/18 06:00 - Labs Result Diagrams: 03/07/18 07:45 03/07/18 07:45 Labs: Laboratory Results - last 24 hr 03/07/18 03/07/18 03/07/18 07:45 07:45 07:45 WBC 4.5 D RBC 3.37 L Hgb 10.4 L Hct 31.7 L MCV 94.1 MCH 30.9 MCHC 32.8 RDW 17.5 H Plt Count 113 L MPV 10.1 Sodium 135 Potassium 3.9 Chloride 102 Carbon Dioxide 28 Anion Gap 8 L BUN 7 Creatinine 0.6 L Est GFR ( Amer) > 60 Est GFR (Non-Af Amer) > 60 Random Glucose 101 Serum Osmolality 279 Calcium 8.1 L Phosphorus 2.1 L Magnesium 2.1 Total Bilirubin 0.7 AST 67 H D ALT 50 Alkaline Phosphatase 80 Total Protein 6.8 Albumin 3.6 Globulin 3.2 Albumin/Globulin Ratio 1.1 Free T4 0.93 TSH 3rd Generation 2.34 Urine Osmolality Ur Random Creatinine U Random Total Protein Ur Random Sodium Hepatitis A IgM Ab Hep Bs Antigen Hep B Core IgM Ab Hepatitis C Antibody 03/07/18 03/07/18 07:45 19:00 WBC RBC Hgb Hct MCV MCH MCHC RDW Plt Count MPV Sodium Potassium Chloride Carbon Dioxide Anion Gap BUN Creatinine Est GFR ( Amer) Est GFR (Non-Af Amer) Random Glucose Serum Osmolality Calcium Phosphorus Magnesium Total Bilirubin AST ALT Alkaline Phosphatase Total Protein Albumin Globulin Albumin/Globulin Ratio Free T4 TSH 3rd Generation Urine Osmolality 316 Ur Random Creatinine 40 U Random Total Protein 79 Ur Random Sodium 121 Hepatitis A IgM Ab Negative Hep Bs Antigen Negative Hep B Core IgM Ab Negative Hepatitis C Antibody Negative Assessment & Plan - Assessment and Plan (Free Text) Assessment: Patient is a 37 F with a medical history significant for HIV, traumatic brain injury, and possible seizures who presents to the emergency department /p se izure -Seizure precautions -Continue Keppra -MRI brain w and wo contrast -EEG -Outpatient EMG study
[2018-03-08 07:41] LABS: HEMOGLOBIN 10.3 g/dL (12.0-16.0); MEAN CELL VOLUME 96.7 fl (80.0-105.0); MEAN CORPUSCULAR HEMOGLOBIN 30.7 pg (25.0-35.0); MEAN CORPUSCULAR HGB CONC 31.7 g/dl (31.0-37.0); MEAN PLATELET VOLUME 11.4 fl (7.0-11.0); RBC 3.36 10^6/uL (3.5-6.1); RED CELL DISTRIBUTION WIDTH 17.8 % (11.5-14.5); WHITE BLOOD COUNT 5.2 10^3/uL (4.5-11.0)
[2018-03-08 07:54] LABS: ALB/GLOB RATIO 1.2 (1.1-1.8); ALT/SGPT 44 U/L (7-56); AST/SGOT 52 U/L (14-36); BLOOD UREA NITROGEN 2 mg/dL (7-21); CALCIUM 8.8 mg/dL (8.4-10.5); GFR NON-AFRICAN AMERICAN > 60
[2018-03-08 08:31] VITALS: O2SAT 100
[2018-03-08] MEDS: levETIRAcetam 500mg IVPB 500 MG/100 ML BAG IV SCH (09:47)
[2018-03-08] MEDS: guaiFENesin 100 mg/5 ml Syrup UD PO PRN (09:48)
--- NOTE | 2018-03-08 11:20 | CP.PCM.PN ---
Subjective - Date & Time of Evaluation Date of Evaluation: 03/08/18 Time of Evaluation: 08:30 - Subjective Subjective: Patient seen and examined at bedside. States she feels jittery. Patient states she was diagnosed with schizophrenia and bipolar disorder in the past however decided to stop taking her medications since she was . Since then modesta mosley admits to hearing voices and seeing shadows. She was referred to [facility] psychiatry from her general psychiatrist for better management of her psych meds while however patient states she did not have time to follow up with [facility] since she was busy with her son. Since high school patient was prescribed zoloft, depakote, seroquel, and zyprexa. Patient also states she has had more than one seizure in the past during her childhood. Physical Exam - Head Exam Head Exam: ATRAUMATIC, NORMAL INSPECTION, NORMOCEPHALIC - Eye Exam Eye Exam: EOMI, Normal appearance - ENT Exam ENT Exam: Mucous Membranes Moist - Neck Exam Neck exam: Positive for: Normal Inspection - Respiratory Exam Respiratory Exam: Clear to Auscultation Bilateral, NORMAL BREATHING PATTERN - Cardiovascular Exam Cardiovascular Exam: REGULAR RHYTHM, +S1, +S2 - GI/Abdominal Exam GI & Abdominal Exam: Normal Bowel Sounds, Soft - Neurological Exam Neurological exam: Alert, CN II-XII Intact, Oriented x3 - Expanded Neurological Exam Expanded Speech: Fluid Speech Cranial nerves: EOM's Intact: Normal, Facial Sensation: Normal, Tongue Deviation: Normal Cerebellar Function: Finger to Nose: Normal, Romberg: Abnormal Left, Abnormal Right Upper motor neuron: Pronator Drift: Abnormal Right, Sensory Extinction: Normal Sensory exam: Lower Extremity 2 Point Discrimination: Normal Neuro motor strength exam: Left Upper Extremity: 4, Right Upper Extremity: 4, Left Lower Extremity: 4, Right Lower Extremity: 4 - Psychiatric Exam Psychiatric exam: Normal Affect, Normal Mood - Skin Skin Exam: Normal Color, Warm Objective - Vital Signs/Intake and Output Vital Signs (last 24 hours): Temp Pulse Resp BP Pulse Ox 98 F 89 20 113/79 100 03/08/18 06:00 03/08/18 06:00 03/08/18 06:00 03/08/18 06:00 03/08/18 06:00 - Medications Medications: Current Medications Acetaminophen (Tylenol 325mg Tab) 650 mg PO Q4 PRN PRN Reason: Headache Guaifenesin (Robitussin) 100 mg PO Q4H PRN PRN Reason: Cough Last Admin: 03/08/18 09:48 Dose: 100 mg Levetiracetam (Keppra 500mg Ivpb) 500 mg in 100 mls @ 460 mls/hr IV Q12 CAROLEE Last Admin: 03/08/18 09:47 Dose: 460 mls/hr Sodium Chloride (Sodium Chloride 0.9%) 1,000 mls @ 100 mls/hr IV .Q10H CAROLEE Last Admin: 03/07/18 09:28 Dose: 100 mls/hr Lorazepam (Ativan) 1 mg IVP Q4H PRN; Protocol PRN Reason: Seizure activity Non-Formulary Medication (Elviteg/Julieta/Emtric/Tenofo Dis [Stribild Tablet]) 1 tab PO DAILY [facility] Last Admin: 03/07/18 10:21 Dose: Not Given - Labs Labs: 03/08/18 07:15 03/08/18 07:15 Assessment and Plan - Assessment and Plan (Free Text) Assessment: Patient is a 37 F with a medical history significant for HIV, traumatic brain injury, and possible seizures who presents to the emergency department /p seizure -Seizure precautions -Continue Keppra; monitor for agitation/changes in mood -MRI brain w and wo contrast reveals changes bilaterally in temporal lobe most likely secondary to seizures -EEG -Outpatient EMG study -Recommend psych evaluation since patient is still hearing voices/seeing shadows due to not being on her medications or following up with patient's psychiatrist and restarting her medications -Patient can follow up with Dr. Alfonso or Dr. Estrada within 2 weeks of discharge; contact card provided to patient
[2018-03-08] MEDS: Non Formulary Medication (Elviteg/Cobi/Emtric/Tenofo Dis [Stribild Tablet] 1 TAB) PO SCH (12:57)
--- NOTE | 2018-03-08 13:28 | CP.PCM.PN ---
<Jaya Wells - Last Filed: 03/08/18 15:58> Subjective - Date & Time of Evaluation Date of Evaluation: 03/08/18 Time of Evaluation: 07:15 - Subjective Subjective: Medicine Progress Note for Hospitalist Service, Dr. Casi Wells, DO PGY-1 Pt seen and examined at bedside. Denies any acute complaints, resting comfortably at bedside. Reports no new episodes of seizures since being admitted. Denies headache, dizziness, chest pain, sob, n/v/d/c, abd pain, urinary complaints, anxiety or other symptoms. No acute events reported overnight by staff. Objective - Vital Signs/Intake and Output Vital Signs (last 24 hours): Temp Pulse Resp BP Pulse Ox 98 F 89 20 113/79 100 03/08/18 06:00 03/08/18 06:00 03/08/18 06:00 03/08/18 06:00 03/08/18 06:00 - Medications Medications: Current Medications Acetaminophen (Tylenol 325mg Tab) 650 mg PO Q4 PRN PRN Reason: Headache Guaifenesin (Robitussin) 100 mg PO Q4H PRN PRN Reason: Cough Last Admin: 03/08/18 09:48 Dose: 100 mg Levetiracetam (Keppra 500mg Ivpb) 500 mg in 100 mls @ 460 mls/hr IV Q12 CAROLEE Last Admin: 03/08/18 09:47 Dose: 460 mls/hr Sodium Chloride (Sodium Chloride 0.9%) 1,000 mls @ 100 mls/hr IV .Q10H CAROLEE Last Admin: 03/07/18 09:28 Dose: 100 mls/hr Lorazepam (Ativan) 1 mg IVP Q4H PRN; Protocol PRN Reason: Seizure activity Non-Formulary Medication (Elviteg/Julieta/Emtric/Tenofo Dis [Stribild Tablet]) 1 tab PO DAILY [facility] Last Admin: 03/08/18 12:57 Dose: Not Given - Labs Labs: 03/08/18 07:15 03/08/18 07:15 - Constitutional Appears: Non-toxic, No Acute Distress - Head Exam Head Exam: ATRAUMATIC, NORMOCEPHALIC - Eye Exam Eye Exam: EOMI, Normal appearance, PERRL - ENT Exam ENT Exam: Mucous Membranes Moist - Respiratory Exam Respiratory Exam: Clear to Ausculation Bilateral, NORMAL BREATHING PATTERN. absent: Rales, Rhonchi, Wheezes - Cardiovascular Exam Cardiovascular Exam: REGULAR RHYTHM, +S1, +S2. absent: Gallop, Rubs, Murmur - GI/Abdominal Exam GI & Abdominal Exam: Soft, Normal Bowel Sounds. absent: Distended, Guarding, Tenderness, Organomegaly - Extremities Exam Extremities Exam: Full ROM, Normal Capillary Refill, Normal Inspection. absent: Calf Tenderness, Pedal Edema - Neurological Exam Neurological Exam: Alert, Awake, CN II-XII Intact, Normal Gait, Oriented x3 - Psychiatric Exam Psychiatric exam: Anxious - Skin Skin Exam: Dry, Intact, Normal Color, Warm Assessment and Plan - Assessment and Plan (Free Text) Assessment: 37F w/ a PMh of HIV, and recent miscarriage (01/2018) presented to [facility] [place] ED on 03/06 w/ c/o new onset seizure. Admitted for management and workup of new onset seizure. Plan: New-onset seizure CT head on admission: normal No recent changes in medication, Utox negative, No acute illness reported Electrolyte disturbances on admission corrected, BMP wnl today C/w keppra 500 mg IV Q12 h Ativan 1 mg q4h prn MRI Brain: unremarkable EEG done, f/u results Neurology consulted (Dr. Estrada), appreciate recs Hx HIV C/w Stribold, pt using non-formulary med from home CD4 count pending Hx Miscarriage in Jan 2018 -Pt having vaginal spotting currently Beta hcG 11.89 => 8.03 -OB consulted (Dr. Joshua), recommends outpatient f/u with pt's primary EYE PHYSICIAN for management post-miscarriage -Transvag U/s: 17 mm thickened heterogeneous endometrium possibly representing hemorrhage or retained products of conception though there is no evidence of internal vascularity on Doppler interrogation. Hx Bipolar Disorder/Schizophrenia/Possible Auditory Hallucinations -Per neurology note today, pt admitted to hearing voices and seeing shadows -Pt stated she was told to stop taking her home med Seroquel by her doctor because she was . Has not resumed taking home psych meds since. -Psych consulted, recs appreciated PPX: DVT: SCD GI: None indicated Pt seen, examined, and plan discussed with Dr. Lance, attending physician. Jaya Wells, DO PGY-1, [place] Pager #[phone] <Sridhar Lance - Last Filed: 03/09/18 13:57> Objective - Vital Signs/Intake and Output Vital Signs (last 24 hours): Temp Pulse Resp BP Pulse Ox 98.2 F 79 20 137/75 100 03/08/18 23:22 03/08/18 23:22 03/08/18 23:22 03/08/18 23:22 03/08/18 23:22 Intake and Output: 03/09/18 03/09/18 06:59 18:59 Intake Total 120 Balance 120 - Labs Labs: 03/08/18 07:15 03/08/18 07:15 Attending/Attestation - Attestation I have personally seen and examined this patient.: Yes I have fully participated in the care of the patient.: Yes I have reviewed all pertinent clinical information, including history, physical exam and plan: Yes Notes (Text): 37y/o F with PMH of HIV on HAART, recent miscarriage in Jan 2018, admitted for new onset seizure so far with negative CT head and MRI brain. Neuro on board, c/w keppra and f/u EEG results. Pts transvaginal U/S was questionable for hemorrhage or retained products of conception and her BHCG was 11.89 on admission. I discussed case with Dr Joshua (Drawing Hand), who stated it was unlikely retained product and most likely her menstral bleed. Recommended repeating the BHCG and if it was trending down, then the initial BHCG level was due to her recent . Repeat BHCG dropped to 8 .03. Pt was advised to f/u with centerpuncher as an outpatient. As per neuro team, pt stated she was "hearing voices", during my interview pt stated this was in the past and has not happened recently. Will consult psych to assist in restarting her antipsychotics that were held during her . c/w HIV meds
[2018-03-08] MEDS ORDERED: Haloperidol Lactate 2 mg/ml Liquid PO PRN ×2 (17:07→18:40)
--- NOTE | 2018-03-08 17:52 | PCM.RRT ---
<No Corbett - Last Filed: 03/08/18 19:14> SHANK PINNER Nurse Assessment - Situation Date: 03/08/18 Time SHANK PINNER was called: 16:50 SHANK PINNER Responder Arrival Time: 16:52 SHANK PINNER Location:: [address] [place] [address] Room Number: 577-2 SHANK PINNER Reason for Call: Change in Mental Status SHANK PINNER Called By: RN - IV IV Inserted during SHANK PINNER?: No IV Fluids Initiated During SHANK PINNER?: no - Respiratory Oxygen Delivery Method: Room Air, Nasal Cannula @L/min Oxygen Flow Rate: 2 - Medication Medications Administered During SHANK PINNER: none, patient had active seizure, patient violent refusing care. - Diagnostic Test Ordered EKG: No Chest X-Ray: No CT Scan: No CPR started during SHANK PINNER?: No - Finger Stick Blood Glucose Finger Stick Blood Glucose: 101 - Caroleen Coma Scale Coma Scale Eye Opening: Spontaneous Coma Scale Motor: Obeys Commands Movement Coma Scale Verbal: Oriented - Time SHANK PINNER Ended Time SHANK PINNER Ended: 17:10 - Vital Signs at end of SHANK PINNER Vital Signs at end of SHANK PINNER: Rapid Response End Vital Sign Blood Pressure 141/100 Pulse Rate 97 Respiratory Rate 20 Temperature 98.3 F O2 Sat by Pulse Oximetry 93 - Recommendations 5) SHANK PINNER Level of Care Recommendations: Remain in current setting Notifications: Attending Physician, Consultations, Family or Designated Caregiver I.Reason for SHANK PINNER - A) Acute Change in Patient: Subjective: Patient had 2 episodes of jerking movements of upper and lower extremities, lasting approximately 10 seconds first time and about a minute the second time. Patient had full regain of consciousness between these seizure episodes. Patient's behavior aggressive post seizures, refuses to be examined or answer questions, states that she does "not want to be touched." No bowel/urinary incontinence or vomiting episodes noted. Patient had EEG monitoring on during the seizure episodes. Patient further denies suicidal/homicidal ideations. ROS limited due to uncooperative patient. - Respiratory Oxygen Delivery Method: Room Air, Nasal Cannula @L/min Oxygen Flow Rate: 2 Plan - Assessment of Findings&Treatment Plan This is a 37 year old female with PMH HIV, recent miscarriage, questionable schizophrenia (non compliant with psych medications), had 2 episodes of jerking movements of her entire body: Likely pseudoseizure, vs generalized tonic clonic seizure - Spoke with Neurology, will give Keppra 750 mg IV. - Ativan 1 mg q 4h prn seizure activity already on board. - Neuro checks. - Patient refusing IV/IM medications currently. Will give Haldol PO prn agitation. - Patient denies suicidal/homicidal ideations, Psych consulted, follow up recommendations. - Attending physician, Dr Lance, at bedside. Case discussed with him. No Corbett, PGY2 <Sridhar Lance - Last Filed: 03/09/18 13:09> SHANK PINNER Nurse Assessment - Vital Signs at end of SHANK PINNER Vital Signs at end of SHANK PINNER: Rapid Response End Vital Sign Blood Pressure 141/100 Pulse Rate 97 Respiratory Rate 20 Temperature 98.3 F O2 Sat by Pulse Oximetry 93 Attending/Attestation - Attestation I have personally seen and examined this patient.: Yes I have fully participated in the care of the patient.: Yes I have reviewed all pertinent clinical information, including history, physical exam and plan: Yes Notes (Text): Pt apparently had seizure like activity while connected to EEG. Seizure abated prior to receiving ativan. Pt then became aggressive and hostile towards medical team. She refused physical exam or any IM medications. Neuro to review EEG tracings Keppra increased as per neuro recommendation Start haldol PO PRN for agitation Pt denies any suicidal or homicidal ideation No indication for 1:1 at this time
[2018-03-08] MEDS: Sodium Chloride 0.9% 1,000 ML IV SCH (18:14)
[2018-03-08 23:23] VITALS: BP 137/75; PULSE 79; RESP 20; TEMP 98.2
[2018-03-09 06:45] LABS: % CD4 (T HELPER CELL) 55 Percent (30-61); % CD8 (SUPPRESSOR T CELL) 30 Percent (12-42); ABSOLUTE CD4 CELLS 877 Cells/mcL (490-1740); ABSOLUTE CD8 CELLS 472 Cells/mcL (180-1170); ABSOLUTE LYMPHOCYTES 1582 Cells/mcL (850-3900); HELPER/SUPPRESSOR RATIO 1.86 Ratio (0.86-5.00)
--- NOTE | 2018-03-09 09:00 | CP.PCM.PCO ---
Physician Communication Note - Physician Communication Note Physician Communication Note: pt was d/c
--- NOTE | 2018-03-09 09:12 | CP.PCM.DIS ---
Provider - Provider Date of Admission: 03/06/18 21:13 Attending physician: Lidia Palomino MD Primary care physician: Devan Gallardo MD Consults: 03/06/18 21:15 Physician Consult Stat Comment: Consulting Provider: Tanesha Alfonso Consulting Physician: Tanesha Alfonso Reason for Consult: new onset seizure w/ h/o HIV 03/07/18 17:09 Physician Consult Routine Comment: Consulting Provider: Katherine Joshua Consulting Physician: Katherine Joshua Reason for Consult: retained products of conception 03/08/18 12:51 Consult [Physician Consult] Routine Comment: Consulting Provider: Micaeal Rodriguez Consulting Physician: Micaela Rodriguez Reason for Consult: schizoaffective, hearing voices Time Spent in preparation of Discharge (in minutes): 45 Diagnosis - Discharge Diagnosis (1) Hx of human immunodeficiency virus infection Status: Chronic (2) History of miscarriage Status: Acute (3) Hx of bipolar disorder Status: Chronic (4) Hx of schizophrenia Status: Chronic (5) Auditory hallucinations Status: Acute (6) Seizure Status: Acute Hospital Course - Lab Results Lab Results: Micro Results 03/06/18 19:50 Urine Urine Culture - Preliminary Escherichia Coli Most Recent Lab Values WBC 5.2 10^3/uL (4.5-11.0) 03/08/18 07:15 RBC 3.36 10^6/uL (3.5-6.1) L 03/08/18 07:15 Hgb 10.3 g/dL (12.0-16.0) L 03/08/18 07:15 Hct 32.5 % (36.0-48.0) L 03/08/18 07:15 MCV 96.7 fl (80.0-105.0) 03/08/18 07:15 MCH 30.7 pg (25.0-35.0) 03/08/18 07:15 MCHC 31.7 g/dl (31.0-37.0) 03/08/18 07:15 RDW 17.8 % (11.5-14.5) H 03/08/18 07:15 Plt Count 127 10^3/uL (120.0-450.0) 03/08/18 07:15 MPV 11.4 fl (7.0-11.0) H 03/08/18 07:15 Gran % 76.3 % (50.0-68.0) H 03/06/18 18:18 Lymph % (Auto) 11.6 % (22.0-35.0) L 03/06/18 18:18 Banks % (Auto) 7.9 % (1.0-6.0) H 03/06/18 18:18 Eos % (Auto) 3.7 % (1.5-5.0) 03/06/18 18:18 Baso % (Auto) 0.5 % (0.0-3.0) 03/06/18 18:18 Gran # 4.74 (1.4-6.5) 03/06/18 18:18 Lymph # (Auto) 0.7 (1.2-3.4) L 03/06/18 18:18 Banks # (Auto) 0.5 (0.1-0.6) 03/06/18 18:18 Eos # (Auto) 0.2 (0.0-0.7) 03/06/18 18:18 Baso # (Auto) 0.03 K/mm3 (0.0-2.0) 03/06/18 18:18 Sodium 139 mmol/L (132-148) 03/08/18 07:15 Potassium 4.7 mmol/L (3.6-5.0) 03/08/18 07:15 Chloride 109 mmol/L (98-107) H 03/08/18 07:15 Carbon Dioxide 26 mmol/L (21-33) 03/08/18 07:15 Anion Gap 9 (10-20) L 03/08/18 07:15 BUN 2 mg/dL (7-21) L 03/08/18 07:15 Creatinine 0.6 mg/dl (0.7-1.2) L 03/08/18 07:15 Est GFR ( Amer) > 60 03/08/18 07:15 Est GFR (Non-Af Amer) > 60 03/08/18 07:15 POC Glucose (mg/dL) 101 mg/dL (65-110) 03/08/18 17:20 Random Glucose 100 mg/dL (70-110) 03/08/18 07:15 Serum Osmolality 279 mosm/kg (272-300) 03/07/18 07:45 Calcium 8.8 mg/dL (8.4-10.5) 03/08/18 07:15 Phosphorus 2.1 mg/dL (2.5-4.5) L 03/07/18 07:45 Magnesium 2.1 mg/dL (1.7-2.2) 03/07/18 07:45 Total Bilirubin 0.6 mg/dL (0.2-1.3) 03/08/18 07:15 AST 52 U/L (14-36) H D 03/08/18 07:15 ALT 44 U/L (7-56) 03/08/18 07:15 Alkaline Phosphatase 80 U/L (38-126) 03/08/18 07:15 Total Protein 7.1 g/dL (5.8-8.3) 03/08/18 07:15 Albumin 4.0 g/dL (3.0-4.8) 03/08/18 07:15 Globulin 3.2 gm/dL 03/08/18 07:15 Albumin/Globulin Ratio 1.2 (1.1-1.8) 03/08/18 07:15 Free T4 0.93 ng/dL (0.78-2.19) 03/07/18 07:45 TSH 3rd Generation 2.34 mIU/mL (0.46-4.68) 03/07/18 07:45 Beta HCG, Quant 8.03 mIU/mL (0-6.15) H 03/08/18 08:21 Urine Color Yellow (YELLOW) 03/06/18 19:50 Urine Appearance Clear (CLEAR) 03/06/18 19:50 Urine pH 8.0 (4.7-8.0) 03/06/18 19:50 Ur Specific [place] 1.010 (1.005-1.035) 03/06/18 19:50 Urine Protein Negative mg/dL (<30 mg/dL) 03/06/18 19:50 Urine Glucose (UA) Negative mg/dL (NEGATIVE) 03/06/18 19:50 Urine Ketones Negative mg/dL (NEGATIVE) 03/06/18 19:50 Urine Blood Moderate (NEGATIVE) H 03/06/18 19:50 Urine Nitrate Negative (NEGATIVE) 03/06/18 19:50 Urine Bilirubin Negative (NEGATIVE) 03/06/18 19:50 Urine Urobilinogen 0.2 E.U./dL (<1 E.U./dL) 03/06/18 19:50 Ur Leukocyte Esterase Moderate Ryan/uL (NEGATIVE) H 03/06/18 19:50 Urine RBC 0 - 2 /hpf (0-2) 03/06/18 19:50 Urine WBC 1 - 3 /hpf (0-6) 03/06/18 19:50 Ur Epithelial Cells 0 - 2 /hpf (0-5) 03/06/18 19:50 Urine Osmolality 316 mosm/kg (300-1000) 03/07/18 19:00 Ur Random Creatinine 40 mg/dL 03/07/18 19:00 U Random Total Protein 79 mg/L 03/07/18 19:00 Ur Random Sodium 121 meq/L 03/07/18 19:00 Urine Opiates Screen Negative (NEGATIVE) 03/06/18 19:50 Urine Methadone Screen Negative (NEGATIVE) 03/06/18 19:50 Ur Barbiturates Screen Negative (NEGATIVE) 03/06/18 19:50 Ur Phencyclidine Scrn Negative (NEGATIVE) 03/06/18 19:50 Ur Amphetamines Screen Negative (NEGATIVE) 03/06/18 19:50 U Benzodiazepines Scrn Negative (NEGATIVE) 03/06/18 19:50 U Oth Cocaine Metabols Negative (NEGATIVE) 03/06/18 19:50 U Cannabinoids Screen Negative (NEGATIVE) 03/06/18 19:50 Alcohol, Quantitative < 10 mg/dL (0-10) 03/06/18 18:18 Absolute Lymphs (Flow) 1582 Cells/mcL (850-3900) 03/07/18 07:45 % CD4 Cells 55 Percent (30-61) 03/07/18 07:45 Absolute CD4 Count 877 Cells/mcL (490-1740) 03/07/18 07:45 T-Help/Suppress Ratio 1.86 Ratio (0.86-5.00) 03/07/18 07:45 % CD8 Cells 30 Percent (12-42) 03/07/18 07:45 Absolute CD8 Count 472 Cells/mcL (180-1170) 03/07/18 07:45 Hepatitis A IgM Ab Negative (NEGATIVE) 03/07/18 07:45 Hep Bs Antigen Negative (NEGATIVE) 01/07/19 07:45 Hep B Core IgM Ab Negative (NEGATIVE) 03/07/18 07:45 Hepatitis C Antibody Negative (NEGATIVE) 03/07/18 07:45 - Hospital Course Hospital Course: HPI at time of admission: "37F w/ a PMh of HIV, and recent miscarriage (01/2018) [place] [facility] [place] w/ c/o new onset seizure. Patient reports hours prior to arrival she was taking a nap with her SO when he noticed that patient began stiffening and experiencing limb jerking movements. SO reported that he rolled patient on side, as patient was foaming at mouth, and witnessed episode lasting for 29 seconds. He reported post seizure patient became lethargic and confused for approximately 15 minutes. Patient denies urinary incontinence however does report she bit her tongue. At time of evaluation she reported feeling exhuasted w/ headache and complains of double vision (which she reports as transient). She denies any new medications or changes to previous medications, she denies any use of alcohol, illicit drugs, or removal prescribed medications. She also denies any recent illnesses. Patient reports her last hospitalization was in January for miscarri age, and December for pyelonephritis. Denies Urinary discomfory, abd pain, n/v/d/c, focal weakness, numbness/tingling, cp, sob, remainder 12 system ROS is otherwise negative." Hospital Course: Pertinent imaging: CT head on admission: normal MRI Brain: unremarkable EEG: normal; event captured looked like non-epileptic event, probably psychogenic, should be correlated clinically. if more info is needed she may benefit from a 24-48 hr video EEG monitoring study for better characterization Transvag U/s: 17 mm thickened heterogeneous endometrium possibly representing hemorrhage or retained products of conception though there is no evidence of internal vascularity on Doppler interrogation. Pt was worked up for new-onset seizure. Dr. Estrada (Neurology) was consulted, who recommended MRI and EEG for further work-up. Pt was placed on Keppra for prophylaxis and treatment. Pt was medically managed for hx HIV on home med Stribold. Pt also was worked up for hx miscarriage. Beta hcG trended from 11.89 => 8.03. [employer]IDENT [employer] was consulted (Dr. Joshua), who recommended outpatient follow-up with pt's primary [employer] for further management. Pt also admitted during admission to hearing voices and seeing shadows. Stated she was told to stop taking her home med Seroquel by her doctor when she was , and did not resume taking home psych meds since miscarriage. Psychiatry was consulted for further management. SOCIALLY RESPONSIBLE INVESTMENT ADVISER was called on pt on 03/08/18 for pt having 2 episodes of jerking movements of the upper and lower extremities, lasting about 10 seconds the first time and about a minute the second time. Pt had full regain of consciousness between these seizure episodes. Pt's behavior was aggressive post-seizures, refused to be examined or answer questions, and stated she "does not want to be touched". No bowel/urinary incontinence or vomiting episodes noted. Pt had EEG monitoring on during seizure episodes. Pt at time denied SI/HI. Case was discussed with neurology who recommended giving 750 mg Keppra IV x1. Pt was refusing IV/IM meds and Haldol was ordered prn for agitation. Per overnight report, pt signed out against medical advice on 03/08/18 in the evening. Risks of leaving against medical advice were discussed with pt at bedside. AMA forms were signed with RN as witness. Discharge Exam - Head Exam Additional comments: Unable to assess due to pt leaving against medical advice Discharge Plan - Follow Up Plan Condition: FAIR Disposition: AGAINST MEDICAL ADVICE Referrals: Devan Gallardo MD [Primary Care Provider] -
--- NOTE | 2018-03-09 12:26 | PCM.EEG ---
Electroencephalogram Report - Electroencephalogram Report Procedure Date: 03/08/18 Medication: Keppra, Haldol Interpretation: Technical Information: This was a 16 -channel EEG, 1-channel EKG routine EEG performed using an Intalio machine. Electrodes were applied using the 10/20 international placement system. Start 16;15 End; 16;59 Total 44 min Clinical Information: 37 y/o woman with seizures During resting wakefulness there was a symmetric posterior dominant rhythm at 8.5-9.5 Hz, 30-50 uV, which was reactive to eye opening and closing. Drowsiness was not seen. Light sleep was not recorded. Hyperventilation was not performed. Photic stimulation was performed and there was symmetric bi occipital driving. Focal abnormality; none ECG was associated with a normal sinus rhythm. 16;52; the patient had an event, not sure if this was a typical episode. She is sitting in bed, family next to her, she falls backwards an begins to shake, eyes are open, following the event she is very agitated. EEG; shows movement artifact intermixed with normal awake architecture. Conclusion non epileptic event. Impression: This is a normal awake electroencephalogram. One event was capture, that clinically and electrically looked like a non epileptic event, probably psychogenic, this should be correlated clinically. If more information is needed, she may benefit form a 24 to 48 Hs video EEG monitoring study, for better characterization.
== END 2018-03-08 21:56 | disposition left against medical advice (07) | DRG 889 ==
LOC: ED 17:37 → ERH 21:13 → 5RNO 03-07 03:30 → 5RSO 03-07 19:14
PROVIDERS: ADMIT Internal Medicine; ATTEND Internal Medicine
DX: R56.9 Unspecified convulsions (principal); F20.9 Schizophrenia, unspecified; Z21 Asymptomatic human immunodeficiency virus [HIV] infection status; F31.9 Bipolar disorder, unspecified; F17.210 Nicotine dependence, cigarettes, uncomplicated; Z83.3 Family history of diabetes mellitus; Z87.820 Personal history of traumatic brain injury; Z82.49 Family history of ischemic heart disease and other diseases of the circulatory system; Z82.5 Family history of asthma and other chronic lower respiratory diseases; Z88.2 Allergy status to sulfonamides

== ENCOUNTER 2018-03-13 05:03 | Emergency (ER) | payer MEDICAID ==
[2018-03-13 05:07] VITALS: BMI 18.2
[2018-03-13 05:28] VITALS: RESP 18
--- NOTE | 2018-03-13 05:39 | ED PDOC ---
Arrival/HPI - General Historian: Patient, Spouse - History of Present Illness Narrative History of Present Illness (Text): Patient is a 37 yr old Female with PMH pseudoseizure/seizure disorder, HIV, recent miscarraige (January 2018), ETOH abuse presents to [facility] emergency department BIBA with partner after having seizures while asleep this AM. Patient is intermittently awake alert and oriented before having brief shaking/writhing episodes. She denies any other complaints at this time. Becomes verbally abusive and violent when staff is attempting to administer care. Partner indicates that patient has been taking keppra as prescribed since leaving the hospital AMA 03/09/17 without any improvement in symptoms. Of note patient had normal 24 hour EEG on previous admission despite "seizure like episode" during this time for which PAINT TECHNICIAN was called. 03/13/18 05:34 Time/Duration: Prior to Arrival, 1-3 hours Symptom Onset: Sudden Symptom Course: Unchanged Severity Level: 6 Activities at Onset: Rest Context: Other (sleeping) <Maritza Neves - Last Filed: 03/13/18 07:00> <Ariel Mathis - Last Filed: 03/13/18 07:02> - General Chief Complaint: Psychiatric Evaluation Time Seen by Provider: 03/13/18 05:30 Past Medical History - Provider Review Nursing Documentation Reviewed: Yes - Infectious Disease Hx of Infectious Diseases: None - Tetanus Immunization Tetanus Immunization: Unknown - Cardiac Hx Cardiac Disorders: No Hx Hypertension: No - Pulmonary Hx Tuberculosis: No - Neurological HX Cerebrovascular Accident: No Hx Seizures: No - Hematological/Oncological Hx Cancer: No - Musculoskeletal/Rheumatological Hx Falls: No - Genitourinary/Gynecological Hx Sexually Transmitted Diseases: No - Psychiatric Hx Bipolar Disorder: Yes Hx Depression: No Hx Schizophrenia: Yes Hx Substance Use: No (DENIES) - Anesthesia Hx Anesthesia: No - Suicidal Assessment Feels Threatened In Home Enviroment: No <Maritza Neves - Last Filed: 03/13/18 07:00> Family/Social History - Physician Review Nursing Documentation Reviewed: Yes Family/Social History: Unknown Family HX Smoking Status: Unknown If Ever Smoked Hx Alcohol Use: Yes (OCCASIONALLY) Hx Substance Use: No (DENIES) <Maritza Neves - Last Filed: 03/13/18 07:00> Allergies/Home Meds <Maritza Neves - Last Filed: 03/13/18 07:00> <Ariel Mathis - Last Filed: 03/13/18 07:02> Allergies/Adverse Reactions: Allergies shellfish derived Allergy (Verified 03/13/18 05:07) RASH Sulfa (Sulfonamide Antibiotics) Allergy (Verified 03/13/18 05:07) RASH Home Medications: Home Meds Medication Instructions Recorded Confirmed Elviteg/Julieta/Emtric/Tenofo Dis 1 tab PO DAILY 03/06/18 03/13/18 [Stribild] Levetiracetam [Levetiracetam ER] 750 mg PO DAILY 03/13/18 03/13/18 Review of Systems - Review of Systems Systems not reviewed;Unavailable: Uncooperative <Maritza Neves - Last Filed: 03/13/18 07:00> Physical Exam Vital Signs Reviewed: Yes Vital Signs Temp Pulse Resp BP Pulse Ox 03/13/18 05:27 98.4 F 115 H 18 136/90 100 03/13/18 05:17 109 H 16 136/90 100 Temperature: Afebrile Blood Pressure: Normal Pulse: Tachycardic Respiratory Rate: Normal Appearance: Positive for: Well-Appearing, Non-Toxic Pain Distress: Mild Mental Status: Positive for: Alert and Oriented X 3, Agitated - Systems Exam Head: Present: Atraumatic, Normocephalic Extroacular Muscles: Present: EOMI Mouth: Present: Moist Mucous Membranes Neck: Present: Normal Range of Motion Respiratory/Chest: No: Respiratory Distress, Accessory Muscle Use Cardiovascular: Present: Tachycardic. No: Murmurs Abdomen: No: Tenderness, Distention, Peritoneal Signs Upper Extremity: Present: Normal Inspection, NORMAL PULSES. No: Cyanosis, Edema Lower Extremity: Present: Normal Inspection, NORMAL PULSES. No: Edema, CALF TENDERNESS Neurological: Present: GCS=15, CN II-XII Intact, Speech Normal, Motor Func Grossly Intact, Memory Normal Skin: Present: Warm, Dry, Normal Color, Other (scars to left proximal forearm consistent with history of self harm). No: Rashes Psychiatric: Present: Alert, Oriented x 3, Anxious, Agitated <NevesMaritza - Last Filed: 03/13/18 07:00> Vital Signs Temp Pulse Resp BP Pulse Ox 03/13/18 05:27 98.4 F 115 H 18 136/90 100 03/13/18 05:17 109 H 16 136/90 100 <Ariel Mathis - Last Filed: 03/13/18 07:02> Medical Decision Making ED Course and Treatment: Impression: 37 yr F with PMH HIV, seizure vs pseudoseizure disorder and ETOH abuse who presents with recurrent seizures beginning early this morning Plan: cbc cmp ETOH level Urine toxicity screen EKG CXR 03/13/18 05:42 ETOH level highly elevated at 375 03/13/18 06:53 03/13/18 06:[address] Patton/ pending sobriety reassess/ possible AMA - Lab Interpretations Lab Results: 03/13/18 05:10 03/13/18 05:10 Lab Results 03/13/18 05:10: Alcohol, Quantitative 375 H* 03/13/18 05:10: Sodium 147, Potassium 3.9, Chloride 105, Carbon Dioxide 33, Anion Gap 12, BUN 11, Creatinine 0.8, Est GFR ( Amer) > 60, Est GFR (Non- Af Amer) > 60, Random Glucose 102, Calcium 10.0, Phosphorus 4.8 H, Magnesium 1.7, Total Bilirubin 0.3, AST 53 H, ALT 47, Alkaline Phosphatase 90, Total Protein 7.8, Albumin 4.2, Globulin 3.6, Albumin/Globulin Ratio 1.2 03/13/18 05:10: WBC 5.7, RBC 3.89, Hgb 12.1, Hct 36.8, MCV 94.6, MCH 31.1, MCHC 32.9, RDW 17.7 H, Plt Count 269, MPV 9.7, Gran % 44.7 L, Lymph % (Auto) 41.7 H, [place] % (Auto) 10.1 H, Eos % (Auto) 2.6, Baso % (Auto) 0.9, Gran # 2.56, Lymph # (Auto) 2.4, [place] # (Auto) 0.6, Eos # (Auto) 0.2, Baso # (Auto) 0.05 <Maritza Neves - Last Filed: 03/13/18 07:00> ED Course and Treatment: Impression: Pt seen and evaluated with resident. Aware and agree with HPI, clinical findings, plan, and management. Pt, whose past medical history includes pseudoseizure/seizures, HIV, and alcohol abuse, presented s/p witnessed seizure while sleeping today. Plan: -- EKG -- Chest X-ray -- Labs, alcohol level -- Urine drug screen -- Reassess and disposition - Lab Interpretations Lab Results: Total Bilirubin 0.3 mg/dL (0.2-1.3) 03/13/18 05:10 AST 53 U/L (14-36) H 03/13/18 05:10 ALT 47 U/L (7-56) 03/13/18 05:10 Alkaline Phosphatase 90 U/L (38-126) 03/13/18 05:10 Total Protein 7.8 g/dL (5.8-8.3) 03/13/18 05:10 Albumin 4.2 g/dL (3.0-4.8) 03/13/18 05:10 Globulin 3.6 gm/dL 03/13/18 05:10 Albumin/Globulin Ratio 1.2 (1.1-1.8) 03/13/18 05:10 - RAD Interpretation Radiology Orders: 03/13/18 05:44 CHEST PORTABLE [RAD] Stat <Ariel Mathis - Last Filed: 03/13/18 07:02> Disposition/Present on Arrival - Present on Arrival Any Indicators Present on Arrival: No History of DVT/PE: No History of Uncontrolled Diabetes: No Urinary Catheter: No History of Decub. Ulcer: No History Surgical Site Infection Following: None - Disposition Have Diagnosis and Disposition been Completed?: No Disposition Time: 07:00 <Maritza Neves - Last Filed: 03/13/18 07:00> <Ariel Mathis - Last Filed: 03/13/18 07:02> - Disposition Diagnosis: Alcohol abuse with intoxication, Seizure disorder Patient Problems: Current Active Problems Problem Status Onset Alcohol abuse with intoxication Acute Seizure disorder Acute Referrals: Devan Gallardo MD [Primary Care Provider] - Follow up with primary Forms: [employer] (Guyanese)
[2018-03-13 06:08] LABS: ALB/GLOB RATIO 1.2 (1.1-1.8); ALBUMIN 4.2 g/dL (3.0-4.8); ALT/SGPT 47 U/L (7-56); AST/SGOT 53 U/L (14-36); BLOOD UREA NITROGEN 11 mg/dL (7-21); GFR NON-AFRICAN AMERICAN > 60
[2018-03-13 06:23] LABS: BASO # 0.05 K/mm3 (0.0-2.0); BASO % 0.9 % (0.0-3.0); EOS # 0.2 (0.0-0.7); EOS % 2.6 % (1.5-5.0); GRAN # 2.56 (1.4-6.5); GRAN % 44.7 % (50.0-68.0); HEMOGLOBIN 12.1 g/dL (12.0-16.0); LYMPH # 2.4 (1.2-3.4); LYMPH % 41.7 % (22.0-35.0); MEAN CELL VOLUME 94.6 fl (80.0-105.0); MEAN CORPUSCULAR HEMOGLOBIN 31.1 pg (25.0-35.0); MEAN CORPUSCULAR HGB CONC 32.9 g/dl (31.0-37.0); MEAN PLATELET VOLUME 9.7 fl (7.0-11.0); MONO # 0.6 (0.1-0.6); MONO % 10.1 % (1.0-6.0); RBC 3.89 10^6/uL (3.5-6.1); RED CELL DISTRIBUTION WIDTH 17.7 % (11.5-14.5); WHITE BLOOD COUNT 5.7 10^3/uL (4.5-11.0)
[2018-03-13 06:40] LABS: BARBITURATES, UR NEGATIVE (NEGATIVE); BENZODIAZEPINES, UR NEGATIVE (NEGATIVE); OPIATES, UR NEGATIVE (NEGATIVE); PHENCYCLIDINE, UR NEGATIVE (NEGATIVE)
[2018-03-13] MEDS ORDERED: Sodium Chloride 0.9% 1,000 ML IV STA (07:06)
--- NOTE | 2018-03-13 07:20 | ED PDOC ---
Physical Exam Vital Signs Temp Pulse Resp BP Pulse Ox 03/13/18 05:27 98.4 F 115 H 18 136/90 100 03/13/18 05:17 109 H 16 136/90 100 Medical Decision Making ED Course and Treatment: 03/13/18 07:00 Case endorsed to me by Dr. Mathis. Pending sobriety and reassessment. - Lab Interpretations Lab Results: Total Bilirubin 0.3 mg/dL (0.2-1.3) 03/13/18 05:10 AST 53 U/L (14-36) H 03/13/18 05:10 ALT 47 U/L (7-56) 03/13/18 05:10 Alkaline Phosphatase 90 U/L (38-126) 03/13/18 05:10 Total Protein 7.8 g/dL (5.8-8.3) 03/13/18 05:10 Albumin 4.2 g/dL (3.0-4.8) 03/13/18 05:10 Globulin 3.6 gm/dL 03/13/18 05:10 Albumin/Globulin Ratio 1.2 (1.1-1.8) 03/13/18 05:10 - RAD Interpretation Radiology Orders: 03/13/18 05:44 CHEST PORTABLE [RAD] Stat - Medication Orders Current Medication Orders: Sodium Chloride (Sodium Chloride 0.9%) 1,000 mls @ 999 mls/hr IV .Q1H1M STA Stop: 03/13/18 08:06 - Scribe Statement The provider has reviewed the documentation as recorded by the Camelia Jordan Provider Scribe Attestation: All medical record entries made by the Scribsamuel were at my direction and personally dictated by me. I have reviewed the chart and agree that the record accurately reflects my personal performance of the history, physical exam, medical decision making, and the department course for this patient. I have also personally directed, reviewed, and agree with the discharge instructions and disposition. Disposition/Present on Arrival - Present on Arrival Any Indicators Present on Arrival: No History of DVT/PE: No History of Uncontrolled Diabetes: No Urinary Catheter: No History of Decub. Ulcer: No History Surgical Site Infection Following: None - Disposition Have Diagnosis and Disposition been Completed?: Yes Diagnosis: Alcohol abuse with intoxication, Seizure disorder Disposition: HOME/ ROUTINE Disposition Time: 08:30 Condition: IMPROVED Discharge Instructions (ExitCare): Alcohol Use - When Is Drinking a Problem? Additional Instructions: LAUREN PATEL, thank you for letting us take care of you today. The emergency medical care you received today was directed at your acute symptoms. If you were prescribed any medication, please fill it and take as directed. It may take several days for your symptoms to resolve. Return to the Emergency Department if your symptoms worsen, do not improve, or if you have any other problems. Please contact your doctor or call one of the physicians/clinics you have been referred to that are listed on the Patient Visit Information form that is included in your discharge packet. Bring any paperwork you were given at discharge with you along with any medications you are taking to your follow up visit. Our treatment cannot replace ongoing medical care by a primary care provider outside of the emergency department. Thank you for allowing the [email or web address] team to be part of your care today. Follow up with your primary care doctor in 3-4 days for re-evaluation and further management. Referrals: Devan Gallardo MD [Primary Care Provider] - Follow up with primary Forms: [employer] (Mozambican)
[2018-03-13 08:35] VITALS: BP 112/75; PULSE 92; TEMP 98.2
[2018-03-13 08:45] VITALS: O2SAT 100
== END 2018-03-13 09:21 | disposition home or self-care (01) ==
LOC: ED 05:03
DX: F10.129 Alcohol abuse with intoxication, unspecified (principal); G40.909 Epilepsy, unspecified, not intractable, without status epilepticus; F20.9 Schizophrenia, unspecified
CPT/HCPCS: 80053; 80320; 80324; 80345; 80346; 80349; 80353; 80358; 80361; 81025; 83735; 83992; 84100; 85025; 96360; 99284; J7030

== ENCOUNTER 2018-07-20 19:09 | Emergency (ER) | payer MEDICAID ==
[2018-07-20 19:09] VITALS: BMI 18.2
--- NOTE | 2018-07-20 19:40 | ED PDOC ---
Arrival/HPI - General Historian: Patient, Spouse - History of Present Illness Narrative History of Present Illness (Text): 07/20/18 19:33 Pt is a 38yo female with a PMH of HIV, seizures, bipolar, schizophrenia, and pyelonephritis who presented to the ED after a witnessed seizure at home with her significant other. Pt was in bed watching TV when she began to convulse. She was unresponsive to her boyfriend during this time. She began foaming at the mouth, her boyfriend began counting and estimates the episode lasted about 1.5 minutes. Pt bit her tongue and started bleeding from her mouth. Pt has not missed a dose of her Keppra, other other medications. Pt reports associated nausea, pt is confused at time of history and physical, but is AAOx3. Denies diarrhea, or vomiting. Time/Duration: 1 hour Symptom Course: Improving Severity Level: 5 Activities at Onset: Rest Context: Sitting <Jose Ledesma - Last Filed: 07/20/18 22:00> <Jono Puckett - Last Filed: 07/21/18 01:15> - General Chief Complaint: Seizure Past Medical History - Infectious Disease Hx of Infectious Diseases: None - Tetanus Immunization Tetanus Immunization: Unknown - Cardiac Hx Cardiac Disorders: No Hx Hypertension: No - Pulmonary Hx Tuberculosis: No - Neurological HX Cerebrovascular Accident: No Hx Seizures: No - Hematological/Oncological Hx Cancer: No - Musculoskeletal/Rheumatological Hx Falls: No - Genitourinary/Gynecological Hx Sexually Transmitted Diseases: No - Psychiatric Hx Bipolar Disorder: Yes Hx Depression: No Hx Schizophrenia: Yes Hx Substance Use: No (DENIES) - Anesthesia Hx Anesthesia: No - Suicidal Assessment Feels Threatened In Home Enviroment: No <Jose Ledesma - Last Filed: 07/20/18 22:00> Family/Social History Family/Social History: Diabetes Smoking Status: Unknown If Ever Smoked Hx Alcohol Use: Yes (OCCASIONALLY) Hx Substance Use: No (DENIES) <Jose Ledesma - Last Filed: 07/20/18 22:00> Allergies/Home Meds <Jose Ledesma - Last Filed: 07/20/18 22:00> <Jono Puckett - Last Filed: 07/21/18 01:15> Allergies/Adverse Reactions: Allergies shellfish derived Allergy (Verified 03/13/18 05:07) RASH Sulfa (Sulfonamide Antibiotics) Allergy (Verified 03/13/18 05:07) RASH Home Medications: Home Meds Medication Instructions Recorded Confirmed Elviteg/Julieta/Emtric/Tenofo Dis 1 tab PO DAILY 03/06/18 03/13/18 [Stribild] Levetiracetam [Levetiracetam ER] 750 mg PO DAILY 03/13/18 03/13/18 Review of Systems - Review of Systems Constitutional: Normal Eyes: Normal ENT: Normal Respiratory: Normal Cardiovascular: Palpitations Gastrointestinal: Nausea Musculoskeletal: Normal Skin: Normal Neurological: Dizziness, Seizure Endocrine: Normal Hemo/Lymphatic: Normal Psychiatric: Normal <Jose Ledesma - Last Filed: 07/20/18 22:00> Physical Exam Vital Signs Reviewed: Yes Temperature: Afebrile Blood Pressure: Normal Pulse: Regular Respiratory Rate: Normal Appearance: Positive for: Well-Appearing Mental Status: Positive for: Alert and Oriented X 3 Finger Stick Blood Glucose: 122 - Systems Exam Head: Present: Atraumatic, Normocephalic Pupils: Present: PERRL Extroacular Muscles: Present: EOMI Mouth: Present: Moist Mucous Membranes, Other (bite lou on tongue). No: Normal Tounge Neck: Present: Normal Range of Motion Respiratory/Chest: Present: Clear to Auscultation, Good Air Exchange. No: Respiratory Distress, Accessory Muscle Use Cardiovascular: Present: Regular Rate and Rhythm, Normal S1, S2 Abdomen: Present: Normal Bowel Sounds. No: Tenderness, Distention Upper Extremity: Present: Normal Inspection Lower Extremity: Present: Normal Inspection Neurological: Present: CN II-XII Intact, Speech Normal, Other (post ictal ) Skin: Present: Warm, Dry, Normal Color Psychiatric: Present: Alert, Oriented x 3 <Jose Ledesma - Last Filed: 07/20/18 22:00> Vital Signs Temp Pulse Resp BP Pulse Ox 07/20/18 19:37 98.1 F 126 H 20 134/85 98 <Jono Puckett - Last Filed: 07/21/18 01:15> Medical Decision Making ED Course and Treatment: 07/20/18 19:45 CBC CMP Alcohol level EKG shows NSR, tachycardia, no ST or T wave abnormalities zofran for nausea, pt vomiting in ED 07/20/18 19:[address] non con 07/20/18 20:[address] Alfonso, suggested increasing pt dose to keppra 1000 now, and can likely discharge pt later in the evening. 07/20/18 21:58 Pt seen, examined, assesment and plan discussed with Dr Italo Ledesma PGY1 <Jose Ledesma - Last Filed: 07/20/18 22:00> ED Course and Treatment: Impression: Pt seen and evaluated with biomedical equipment specialist continuing education dean. Aware and agree with HPI, clinical findings, plan, and management. Pt, whose past medical history includes HIV, seizures, bipolar, schizophrenia, and pyelonephritis, presented s/p witnessed seizure at home. Plan: -- CT Head w/o contrast -- EKG -- Labs, alcohol level -- Urine drug screen -- Zofran -- Reassess and disposition - Lab Interpretations Lab Results: Total Bilirubin 1.4 mg/dL (0.2-1.3) H 07/20/18 19:59 AST 80 U/L (14-36) H D 07/20/18 19:59 ALT 52 U/L (7-56) 07/20/18 19:59 Alkaline Phosphatase 74 U/L (38-126) 07/20/18 19:59 Total Protein 7.9 g/dL (5.8-8.3) 07/20/18 19:59 Albumin 4.6 g/dL (3.0-4.8) 07/20/18 19:59 Globulin 3.3 gm/dL 07/20/18 19:59 Albumin/Globulin Ratio 1.4 (1.1-1.8) 07/20/18 19:59 - RAD Interpretation Radiology Orders: 07/20/18 19:50 HEAD W/O CONTRAST [CT] Stat - Medication Orders Current Medication Orders: Discontinued Medications Levetiracetam (Keppra) 1,000 mg PO STAT STA Stop: 07/20/18 20:42 Ondansetron HCl (Zofran Inj) 4 mg IVP STAT STA Stop: 07/20/18 19:41 Last Admin: 07/20/18 19:45 Dose: 4 mg IVP Administration Document 07/20/18 19:45 EB (Rec: 07/20/18 20:07 EB [id number]) Charges for Administration # of IVP Administrations 1 Ondansetron HCl (Zofran Inj) 4 mg IVP STAT STA Stop: 07/20/18 19:50 Last Admin: 07/20/18 20:05 Dose: Not Given Non-Admin Reason: duplicate order IVP Administration Document 07/20/18 20:05 EB (Rec: 07/20/18 20:06 EB [id number]) Charges for Administration # of IVP Administrations 0 <Jono Puckett - Last Filed: 07/21/18 01:15> - PA / HEALTH SCIENCES PROGRAM COORDINATOR / Resident Statement / has reviewed & agrees with the documentation as recorded. / has examined the patient and agrees with the treatment plan. <Jono Puckett - Last Filed: 07/21/18 01:15> Disposition/Present on Arrival - Present on Arrival Any Indicators Present on Arrival: No History of DVT/PE: No History of Uncontrolled Diabetes: No Urinary Catheter: No History of Decub. Ulcer: No History Surgical Site Infection Following: None - Disposition Have Diagnosis and Disposition been Completed?: Yes Disposition Time: 21:59 Patient Plan: Discharge <Jose Ledesma - Last Filed: 07/20/18 22:00> - Present on Arrival Any Indicators Present on Arrival: No - Disposition Have Diagnosis and Disposition been Completed?: Yes <Jono Puckett - Last Filed: 07/21/18 01:15> - Disposition Diagnosis: Seizure Disposition: HOME/ ROUTINE Condition: FAIR Discharge Instructions (ExitCare): Seizures, Adult (DC) Prescriptions: Levetiracetam [Keppra] 1,000 mg PO HS #28 tablet Referrals: Devan Gallardo MD [Primary Care Provider] - Follow up with primary Tanesha Alfonso MD [Staff Provider] - Follow up with primary Forms: [employer] ([place]otswanan)
[2018-07-20 19:42] VITALS: TEMP 98.1; O2SAT 98
[2018-07-20 20:12] LABS: BASO # 0.02 K/mm3 (0.0-2.0); BASO % 0.2 % (0.0-3.0); HEMOGLOBIN 13.1 g/dL (12.0-16.0); LYMPH # 0.5 (1.2-3.4); LYMPH % 5.7 % (22.0-35.0); MEAN CELL VOLUME 88.4 fl (80.0-105.0); MEAN CORPUSCULAR HEMOGLOBIN 30.4 pg (25.0-35.0); MEAN CORPUSCULAR HGB CONC 34.4 g/dl (31.0-37.0); MEAN PLATELET VOLUME 10.4 fl (7.0-11.0); MONO # 0.2 (0.1-0.6); MONO % 2.6 % (1.0-6.0); PLATELET COUNT 201 10^3/uL (120.0-450.0); RBC 4.31 10^6/uL (3.5-6.1); RED CELL DISTRIBUTION WIDTH 20.7 % (11.5-14.5); WHITE BLOOD COUNT 8.1 10^3/uL (4.5-11.0)
[2018-07-20 20:27] LABS: ALB/GLOB RATIO 1.4 (1.1-1.8); ALBUMIN 4.6 g/dL (3.0-4.8); BLOOD UREA NITROGEN 10 mg/dL (7-21); CALCIUM 8.9 mg/dL (8.4-10.5); GFR NON-AFRICAN AMERICAN > 60
[2018-07-20 20:28] LABS: ALT/SGPT 52 U/L (7-56); AST/SGOT 80 U/L (14-36)
[2018-07-20 21:09] VITALS: BP 131/85; PULSE 103; RESP 15
[2018-07-20 21:13] LABS: LYMPHOCYTE 6 % (22.0-35.0); MONOCYTE 2 % (1.0-6.0); NEUTROPHIL 92 % (50.0-70.0)
[2018-07-20] MEDS ORDERED: Sodium Chloride 0.9% 1,000 ML IV STA (21:24)
--- NOTE | 2018-07-21 09:32 | CT ---
Date of service: 07/20/2018 PROCEDURE: CT HEAD WITHOUT CONTRAST. HISTORY: seizure COMPARISON: 03/06/2018 TECHNIQUE: Axial computed tomography images were obtained through the head/brain without intravenous contrast. Radiation dose: Total exam DLP = 724.69 mGy-cm. This CT exam was performed using one or more of the following dose reduction techniques: Automated exposure control, adjustment of the mA and/or kV according to patient size, and/or use of iterative reconstruction technique. FINDINGS: HEMORRHAGE: No intracranial hemorrhage. BRAIN: No mass effect or edema. No atrophy or chronic microvascular ischemic changes. VENTRICLES: Unremarkable. No hydrocephalus. CALVARIUM: Unremarkable. PARANASAL SINUSES: Unremarkable as visualized. No significant inflammatory changes. MASTOID AIR CELLS: Unremarkable as visualized. No inflammatory changes. OTHER FINDINGS: The report concurs with the preliminary [facility] report IMPRESSION: No acute intracranial findings
--- NOTE | 2018-07-21 10:14 | CARD ---
APPROVED REPORT Date of service: 07/20/2018 EKG Measurement Heart [id number] <Conclusion> Sinus tachycardia Otherwise normal ECG
== END 2018-07-20 22:34 | disposition home or self-care (01) ==
LOC: ED 19:09
DX: R56.9 Unspecified convulsions (principal); F20.9 Schizophrenia, unspecified; Z83.3 Family history of diabetes mellitus
CPT/HCPCS: 70450; 80053; 80320; 81025; 82948; 85025; 93005; 96374; 99285; J2405; J7030